=== PATIENT | female | born 1955 | race Caucasian/White ===

== ENCOUNTER 2020-08-05 05:01 | Inpatient (IN) ==
[2020-07-30 20:01] LABS: Appearance,Urine CLEAR (Clear); Bilirubin,Urine Negative (Negative); Color,Urine YELLOW; Culture Indicated,Urine No; Glucose,Urine (UA) Negative (Negative); Ketones,Urine Negative (Negative); Leukocyte Esterase,Urine 25 /ug (Negative); Mucus,Urine FEW /hpf; Nitrate,Urine Negative (Negative); Protein,Urine Negative (Negative); Specific Gravity,Urine 1.017 (1.000-1.035); Urine Blood Negative (Negative); Urine RBC 0 /hpf (0-1); Urine Squamous Epithelial Cell < 1 /hpf (0-4); Urine WBC 2 /hpf (0-4); Urobilinogen,Urine Negative
[2020-07-30 20:15] LABS: ALT/SGPT 18 U/L (<40); AST/SGOT 21 U/L (<32); Albumin 4.4 gm/dL (3.2-5.2); Albumin/Globulin Ratio 1.8 (1.0-2.3); Alkaline Phosphatase 97 U/L (39-117); Bilirubin,Total 0.3 mg/dL (0.1-1.0); Blood Urea Nitrogen 25 mg/dL (8-23); Calcium 9.6 mg/dL (8.6-10.4); Carbon Dioxide 24 mmol/L (22-30); Chloride 105 mmol/L (96-108); Globulin 2.4 gm/dL (2.2-3.7); Glomerular Filtration Rate 39; Glucose 88 mg/dL (70-105)
[2020-07-30 22:43] LABS: Estimated Average Glucose(eAG) 103 mg/dL; Hemoglobin A1C 5.2 % Hgb (4.0-6.0)
[~2020-08-05 05:01] MED LIST: IPRATROPIUM/ALBUTEROL 3 ML AMPUL.NEB NEB PRN; SCOPOLAMINE 1 PATCH PATCH TOPICAL PRN
[2020-08-05] MEDS ORDERED: oxyCODONE 10 MG TAB.ER.12H PO SCH (06:00)
[2020-08-05] MEDS ORDERED: ceFAZolin 2 GM in DEXTROSE 5% IN WATER 50 ML IV SCH (06:00)
[2020-08-05] MEDS ORDERED: GABAPENTIN 300 MG CAPSULE PO SCH (06:00)
[2020-08-05] MEDS ORDERED: 0.9 % SODIUM CHLORIDE 9 ML, KETOROLAC 30 MG, ROPIVACAINE HCL/PF 49.5 ML, EPINEPHrine 0.... IJ SCH (06:00)
[2020-08-05 06:13] LABS: Basophils # (Auto) 0.02 K/mcL (0.00-0.20); Basophils % (Auto) 0.3 % (0.0-2.0); Eosinophils # (Auto) 0.37 K/mcL (0.00-0.70); Eosinophils % (Auto) 5.9 % (0.0-7.0); Hematocrit 33.6 % (36.0-48.0); Hemoglobin 11.2 g/dL (12.0-15.0); Lymphocytes % (Auto) 20.6 % (15.0-49.0); Mean Cell Volume 91.1 fL (80.0-100.0); Mean Corpuscular HGB Conc 33.3 g/dL (31.0-36.0); Mean Platelet Volume 11.5 fL (7.4-10.4); Monocytes # (Auto) 0.47 K/mcL (0.10-0.90); Monocytes % (Auto) 7.4 % (1.0-12.0); Neutrophils % (Auto) 65.8 % (38.0-78.0); Platelet Count 125 K/mcL (140-440); RBC 3.69 M/mcL (4.00-5.20); Red Cell Distribution Width 12.8 % (11.5-14.5); WBC 6.3 K/mcL (4.5-11.0)
[2020-08-05] MEDS ORDERED: PHENYLEPHRINE 10 MG/ML VIAL ONE (07:41)
[2020-08-05] MEDS ORDERED: ONDANSETRON 4 MG/2 ML VIAL ONE (07:41)
[2020-08-05] MEDS ORDERED: TRANEXAMIC ACID 1,000 MG/10 ML VIAL IV ONE ×2 (07:41→09:12)
[2020-08-05] MEDS ORDERED: KETAMINE 100 MG/ML ML ONE (07:41)
[2020-08-05] MEDS ORDERED: PROPOFOL 200 MG/20 ML VIAL IV ONE (07:41)
[2020-08-05] MEDS ORDERED: MIDAZOLAM 2 MG/2 ML VIAL ONE (07:41)
[2020-08-05] MEDS ORDERED: ROPIVACAINE HCL/PF 20 ML VIAL IJ ONE (07:41)
[2020-08-05] MEDS ORDERED: GLYCOPYRROLATE 0.2 MG/ML VIAL IV ONE (07:41)
[2020-08-05] MEDS ORDERED: LIDOCAINE HCL/PF 100 MG/5 ML SYRINGE IV ONE (07:41)
[2020-08-05] MEDS ORDERED: DEXAMETHASONE 10 MG/ML VIAL ONE (07:41)
[2020-08-05] MEDS ORDERED: FLUMAZENIL 0.1 MG/ML ML IV PRN (08:32)
[2020-08-05] MEDS ORDERED: MEPERIDINE 25 MG/ML SYRINGE IV PRN (08:32)
[2020-08-05] MEDS ORDERED: HYDROmorphone 0.5 MG/0.5 ML SYRINGE IV PRN (08:32)
[2020-08-05] MEDS ORDERED: ATROPINE SULFATE 0.4 MG/ML VIAL IV PRN (08:32)
[2020-08-05] MEDS ORDERED: diphenhydrAMINE 50 MG/ML VIAL IV PRN (08:32)
[2020-08-05] MEDS ORDERED: IPRATROPIUM/ALBUTEROL 3 ML AMPUL.NEB NEB PRN (08:32)
[2020-08-05] MEDS ORDERED: NALOXONE HCL 0.4 MG/ML VIAL IV PRN (08:32)
[2020-08-05] MEDS ORDERED: ePHEDrine 50 MG/ML AMPUL IV PRN (08:32)
[2020-08-05] MEDS ORDERED: fentaNYL 100 MCG/2 ML VIAL IV PRN (08:32)
[2020-08-05] MEDS ORDERED: METHOCARBAMOL 1,000 MG/10 ML VIAL IV PRN (08:32)
[2020-08-05] MEDS ORDERED: ONDANSETRON 4 MG/2 ML VIAL IV PRN ×2 (08:32→09:12)
[2020-08-05] MEDS ORDERED: ACETAMINOPHEN 1,000 MG/100 ML BOTTLE IV ONE (08:32)
[2020-08-05] MEDS ORDERED: METOPROLOL TARTRATE 5 MG/5 ML VIAL IV PRN (08:32)
[2020-08-05] MEDS ORDERED: PROMETHAZINE 25 MG/ML VIAL IV PRN (08:32)
[2020-08-05] MEDS ORDERED: LORazepam 2 MG/ML VIAL IV ONE (08:34)
[2020-08-05] MEDS ORDERED: LACTATED RINGERS 1,000 ML IV SCH (08:45)
[2020-08-05] MEDS ORDERED: BENZOCAINE/MENTHOL 1 LOZENGE PO PRN (09:12)
[2020-08-05] MEDS ORDERED: BISACODYL 10 MG SUPP.RECT PR PRN (09:12)
[2020-08-05] MEDS ORDERED: HYDROmorphone 1 MG/ML SYRINGE IV PRN (09:12)
[2020-08-05] MEDS ORDERED: FLEETS ADULT ENEMA PR PRN (09:12)
[2020-08-05] MEDS ORDERED: DEXTROSE 31 GM ORAL.SUSP PO PRN (09:12)
[2020-08-05] MEDS ORDERED: MAGNESIUM HYDROXIDE 30 ML ORAL.SUSP PO PRN (09:12)
[2020-08-05] MEDS ORDERED: POLYETHYLENE GLYCOL 3350 17 GM PACKET PO PRN (09:12)
[2020-08-05] MEDS ORDERED: DEXTROSE 50% 50 ML VIAL IV PRN (09:12)
--- NOTE | 2020-08-05 09:12 | Brief Operative Note ---
Brief Operative Note Date of procedure: 08/05/20 Pre-op diagnosis: Right knee DJD Post-op diagnosis: same Procedure: Right robotic assisted total knee arthroplasty Grafts/Implants: Yes ([place] Triathlon CR 4 femur, 3 tibia, 9mm insert, 33 patella) Anesthesia: GLMA Findings: arthritis Complications: none Surgeon: Edward Meade Sulfide Head Operator: Homer Naidu Estimated blood loss (cc): 50 Specimens Removed/Pathology: none sent Condition: stable Disposition: PACU
[2020-08-05] MEDS ORDERED: ZOLPIDEM 5 MG TABLET PO PRN (09:18)
[2020-08-05] MEDS ORDERED: ALBUTEROL SULFATE 200 PUFF INHALER INH PRN (09:18)
[2020-08-05] MEDS ORDERED: FLUTICASONE PROPIONATE SPRAY.NAS NS PRN (09:18)
[2020-08-05] MEDS ORDERED: ACETAMINOPHEN 500 MG TABLET PO PRN (09:18)
[2020-08-05] MEDS ORDERED: LORazepam 1 MG TABLET PO PRN (09:25)
--- NOTE | 2020-08-05 09:48 | Operative Note ---
DATE OF OPERATION: 08/05/2020 PREOPERATIVE DIAGNOSIS: Right knee osteoarthritis. POSTOPERATIVE DIAGNOSIS: Right knee osteoarthritis. PROCEDURE PERFORMED: Right robotic-assisted total knee arthroplasty placing a [place] Triathlon size 4 cruciate retaining femoral component, size 3 tibial baseplate, and a 9 mm X3 tibial insert with a 33 mm patellar button. SURGEON: Edward Meade M.D. RADIOLOGY TECHNOLOGIST: Ludwin Naidu PA-C. The PA's assistance was required for the safe and efficient completion of the entire case. This providers expertise and technical skill were required throughout the case. The PA assisted with preoperative coordination, intraoperative retraction, wound closure, dressing and splint application, as well as postoperative documentation and care coordination. ANESTHESIA: Spinal plus general. DRAINS: None. SPECIMENS: Bone cuts which were discarded. ESTIMATED BLOOD LOSS: 50 mL. SPECIMENS: None. POSTOPERATIVE CONDITION: Stable. INDICATIONS FOR SURGERY: This is a 64-year-old female who has had severe knee pain, progressively worsening with time. Radiographs showed advancing osteoarthritis. I believe she also had an MRI which confirmed advanced osteoarthritis. FINDINGS AT SURGERY: She had full-thickness cartilage loss off of the trochlea and lateral femoral condyle. Post implantation showed good overall limb alignment, patellar tracking, and joint stability. PROCEDURE IN DETAIL: The patient had been seen preoperatively. Informed consent had been obtained after discussion of risks and benefits of surgery. Risks including, but not limited to, bleeding, possibly requiring transfusion; infection, possibly requiring implant removal and prolonged IV antibiotics; injury to nerves, blood vessels, and other surrounding structures; anesthetic risks; incomplete or no resolution of symptoms; swelling; stiffness; pain; instability; DVT and pulmonary embolus risks; and the possibility of needing further revision joint surgery. Patient understood and wished to proceed. Correct operative site was marked in preoperative holding, and patient was taken to the operating room and general anesthesia was induced. The right lower extremity was then prepped and draped in normal sterile fashion, and a timeout was performed verifying patient name, operative site, and plan. Ioban was placed over all skin surfaces and an Esmarch was used to exsanguinate the extremity, and tourniquet was inflated to 300 mmHg. A midline incision was made with a scalpel through skin and subcutaneous tissue, then IrriSept was irrigated and a medial parapatellar arthrotomy was made, and then a subperiosteal exposure was done of the anterior medial tibia. Anterior horns of the menisci were removed, as well as retropatellar fat pad. ACL was transected. We then did a resection of the patella freehand, premeasuring thickness and then placing a cut protector after. We then placed our femoral and tibial checkpoints, and then a scalpel was used to make two stab incisions over the femur and two over the tibia and bicortical pins placed. The arrays were connected. The green probe was used to identify medial and lateral malleoli and double-checks were made with the green probe of the femoral and tibial check points. Blue probe was then used to do our mapping. A rongeur was used to remove osteophytes. We then used the spoons to check our flexion-extension gaps and made adjustments to get as close to 17 mm gaps on all four numbers as possible. We ended up being tight in flexion laterally, so I did do an IT band pie-crusting release. Once this was completed, we then used the robotic arm to make our bone cuts. The tibia was prepared with the boss reamer and keel punch and externally rotated as bone coverage would allow. A keeled tibial trial was placed, and the femur was elevated. Curved osteotome and curet were used to remove posterior osteophytes. Femoral trial was then impacted and pinned into place. This was placed flush along the lateral cortex of the femur and then peg holes were drilled. A 9 insert trial was placed and then the knee was taken into extension. We then prepared the patella medializing maximally and sized this to a 33 patella. We then checked the patellar tracking and it was stable. We then removed trial implants. Definitive implants were opened while the joint was irrigated with IrriSept. After waiting a minute, we pulse lavaged with saline. Antibiotic cement was mixed and then the cancellous bone surfaces were dried with the CO2 gun. We then cemented the tibia, followed by the femur. Excess cement was removed, and the trial insert was placed, and the knee was taken into extension. The patella was then cemented. After excess cement was removed, we filled the joint with IrriSept. The tibial and femoral check points were removed. The extension was checked and then we removed our arrays and our pins. We injected pain cocktail in the pericapsular and subcutaneous tissues. Once cement had fully hardened, we flexed the knee up. We removed the insert trial, injected pain cocktail in the posteromedial capsule. We then opened a 9 mm CR insert, and this was carefully impacted and verified to be fully seated. The knee was then placed in extension and filled with IrriSept. After a minute it was copiously pulse lavaged with saline. We then flexed the knee to 45 degrees of flexion. A #2 FiberWire [id number] was used around the superior quadrant of the patella, #1 Vicryl [id number] around the inferior quadrant. Running #1 Vicryl was used for patellar tendon and quad tendon. Final IrriSept irrigation was done, after a minute final pulse lavage, and then 2-0 Monocryl was used for subcutaneous and Charlotte Zip closure for skin. Xeroform and sterile dressing were applied. Tourniquet was released. The patient was awakened, extubated, and transferred to recovery in stable condition. [id number] Job ID: [id number] Doc ID: [id number] Edward Meade MD
[2020-08-05] MEDS ORDERED: guaiFENesin/DEXTROMETHORPHAN ORAL SOL PO PRN (10:12)
[2020-08-05] MEDS ORDERED: PROMETHAZINE 25 MG TABLET PO PRN (10:15)
--- NOTE | 2020-08-05 10:33 | XRay Report ---
CLINICAL INFORMATION: Post-op total knee. COMPARISON: None. FINDINGS: Total knee prostheses is anatomically aligned. No osseous abnormality. Periarticular soft tissue swelling and gas seen as expected IMPRESSION: Negative Interpreted and Authenticated by: Faizan Davila 08/05/20
[2020-08-05] MEDS: 0.9 % SODIUM CHLORIDE 1,000 ML IV SCH ×2 (10:44→21:16)
[2020-08-05] MEDS: INSULIN LISPRO 1 UNIT/0.01 ML UNIT SQ SCH ×3 (11:57→20:12)
[2020-08-05] MEDS ORDERED: SELENIUM 200 MCG PO SCH (12:00)
[2020-08-05] MEDS ORDERED: [UNRECOGNIZED DRUG - OTHER] PO SCH (12:00)
[2020-08-05] MEDS: oxyCODONE/APAP 5/325MG TABLET PO PRN ×3 (12:00→20:02)
[2020-08-05] MEDS ORDERED: LACTOBACILLUS 1 CAPSULE PO SCH (12:00)
[2020-08-05] MEDS: FLUTICASONE HFA 44MCG INHALER INH SCH ×3 (12:55→20:04)
[2020-08-05] MEDS: 0.9 % SODIUM CHLORIDE 10 ML SYRINGE IV SCH ×2 (13:41→23:21)
[2020-08-05] MEDS: hydrOXYzine 25 MG TABLET PO SCH ×2 (15:18→20:03)
[2020-08-05] MEDS: ceFAZolin 1 GM VIAL IV SCH ×2 (15:19→23:21)
[2020-08-05] MEDS: GABAPENTIN 300 MG CAPSULE PO SCH ×2 (15:19→20:03)
[2020-08-05] MEDS: IPRATROPIUM/ALBUTEROL 3 ML AMPUL.NEB NEB PRN ×2 (17:18→23:12)
[2020-08-05] MEDS ORDERED: ASCORBIC ACID 500 MG TABLET PO SCH (18:00)
[2020-08-05] MEDS ORDERED: MAGNESIUM OXIDE 400 MG TABLET PO SCH (18:00)
[2020-08-05] MEDS ORDERED: PYRIDOXINE 100 MG TABLET PO SCH ×2 (18:00)
[2020-08-05] MEDS ORDERED: ATORVASTATIN 10 MG TABLET PO SCH (21:00)
[2020-08-05] MEDS ORDERED: FERROUS GLUCONATE 324 MG TABLET PO SCH (21:00)
[2020-08-05] MEDS ORDERED: DOCUSATE SODIUM 100 MG CAPSULE PO SCH (21:00)
[2020-08-05] MEDS ORDERED: [UNRECOGNIZED DRUG - OTHER] OU SCH (21:00)
[2020-08-05] MEDS ORDERED: SENNOSIDES 1 TABLET PO SCH ×2 (21:00)
[2020-08-05] MEDS ORDERED: SIMETHICONE 80 MG TAB.CHEW CHEWED SCH (21:00)
[2020-08-05] MEDS ORDERED: LISINOPRIL 10 MG TABLET PO SCH (21:00)
[2020-08-05] MEDS ORDERED: MONTELUKAST 10 MG TABLET PO SCH (21:00)
[2020-08-05] MEDS ORDERED: MELATONIN 3 MG TABLET PO SCH (21:00)
[2020-08-05] MEDS ORDERED: ASPIRIN 81 MG TAB.CHEW PO SCH (21:00)
[2020-08-05] MEDS ORDERED: HYPROMELLOSE OU SCH (21:00)
[2020-08-06] MEDS ORDERED: LORazepam 2 MG/ML VIAL IV ONE ×2 (00:01→07:45)
[2020-08-06] MEDS ORDERED: LORazepam 2 MG/ML VIAL ONE ×2 (00:08→01:23)
[2020-08-06] MEDS ORDERED: GADOBENATE DIMEGLUMINE 20 ML/VIAL IV ONE (00:37)
[2020-08-06] MEDS ORDERED: FLEETS ADULT ENEMA PR PRN (00:38)
[2020-08-06] MEDS ORDERED: ALBUTEROL SULFATE 200 PUFF INHALER INH PRN (00:38)
[2020-08-06] MEDS ORDERED: HYDROmorphone 1 MG/ML SYRINGE IV PRN (00:38)
[2020-08-06] MEDS ORDERED: guaiFENesin/DEXTROMETHORPHAN ORAL SOL PO PRN (00:38)
[2020-08-06] MEDS ORDERED: DEXTROSE 31 GM ORAL.SUSP PO PRN ×2 (00:38→00:40)
[2020-08-06] MEDS ORDERED: ONDANSETRON 4 MG/2 ML VIAL IV PRN (00:38)
[2020-08-06] MEDS ORDERED: MAGNESIUM HYDROXIDE 30 ML ORAL.SUSP PO PRN (00:38)
[2020-08-06] MEDS ORDERED: DEXTROSE 50% 50 ML VIAL IV PRN ×2 (00:38→00:40)
[2020-08-06] MEDS ORDERED: BISACODYL 10 MG SUPP.RECT PR PRN (00:38)
[2020-08-06] MEDS ORDERED: PROMETHAZINE 25 MG TABLET PO PRN (00:38)
[2020-08-06] MEDS ORDERED: POLYETHYLENE GLYCOL 3350 17 GM PACKET PO PRN (00:38)
[2020-08-06] MEDS ORDERED: BENZOCAINE/MENTHOL 1 LOZENGE PO PRN (00:38)
[2020-08-06] MEDS ORDERED: ACETAMINOPHEN 500 MG TABLET PO PRN (00:38)
[2020-08-06] MEDS ORDERED: IPRATROPIUM/ALBUTEROL 3 ML AMPUL.NEB NEB PRN (00:38)
[2020-08-06] MEDS ORDERED: FLUTICASONE PROPIONATE SPRAY.NAS NS PRN (00:38)
[2020-08-06] MEDS ORDERED: LACTULOSE 20 GM/30 ML ORAL.SOL PO PRN (00:40)
[2020-08-06] MEDS ORDERED: levETIRAcetam 500 MG in 0.9 % SODIUM CHLORIDE 100 ML IV ONE (00:41)
[2020-08-06] MEDS ORDERED: LORazepam 2 MG/ML VIAL IV PRN (00:41)
[2020-08-06] MEDS: 0.9 % SODIUM CHLORIDE 1,000 ML IV SCH ×3 (01:55→18:59)
[2020-08-06] MEDS: 0.9 % SODIUM CHLORIDE 10 ML SYRINGE IV SCH ×5 (05:05→22:10)
[2020-08-06] MEDS ORDERED: HYDROmorphone 0.5 MG/0.5 ML SYRINGE ONE (05:40)
[2020-08-06 06:33] LABS: Basophils # (Auto) 0.01 K/mcL (0.00-0.20); Basophils % (Auto) 0.2 % (0.0-2.0); Eosinophils # (Auto) 0.08 K/mcL (0.00-0.70); Eosinophils % (Auto) 1.6 % (0.0-7.0); Hematocrit 24.5 % (36.0-48.0); Hemoglobin 8.1 g/dL (12.0-15.0); Lymphocytes # (Auto) 0.91 K/mcL (1.50-4.80); Lymphocytes % (Auto) 18.8 % (15.0-49.0); Mean Cell Volume 92.1 fL (80.0-100.0); Mean Corpuscular HGB Conc 33.1 g/dL (31.0-36.0); Mean Platelet Volume 11.3 fL (7.4-10.4); Monocytes # (Auto) 0.47 K/mcL (0.10-0.90); Monocytes % (Auto) 9.7 % (1.0-12.0); Neutrophils % (Auto) 69.7 % (38.0-78.0); Platelet Count 76 K/mcL (140-440); RBC 2.66 M/mcL (4.00-5.20); Red Cell Distribution Width 12.7 % (11.5-14.5); WBC 4.9 K/mcL (4.5-11.0)
[2020-08-06 07:02] LABS: ALT/SGPT 10 U/L (<40); AST/SGOT 18 U/L (<32); Albumin 3.4 gm/dL (3.2-5.2); Albumin/Globulin Ratio 1.8 (1.0-2.3); Alkaline Phosphatase 74 U/L (39-117); Bilirubin,Total 0.2 mg/dL (0.1-1.0); Blood Urea Nitrogen 21 mg/dL (8-23); Calcium 8.5 mg/dL (8.6-10.4); Carbon Dioxide 23 mmol/L (22-30); Chloride 103 mmol/L (96-108); Globulin 1.9 gm/dL (2.2-3.7); Glomerular Filtration Rate 33; Glucose 98 mg/dL (70-105); Phosphorous 5.2 mg/dL (2.5-4.5)
[2020-08-06] MEDS ORDERED: INSULIN LISPRO 1 UNIT/0.01 ML UNIT SQ SCH (07:30)
[2020-08-06] MEDS ORDERED: LEVOTHYROXINE 75 MCG TABLET PO SCH (07:30)
[2020-08-06] MEDS ORDERED: OMEPRAZOLE 20 MG CAPSULE PO SCH (07:30)
--- NOTE | 2020-08-06 07:47 | General Surgery Progress Note ---
Surgery - Auxiliary Note Subjective Patient Information: Note initiated : 08/06/20 at 7:46 am Service Date, if different from initiated Date: [] Patient: Yane Carranza 64 y/o F admitted on 08/06/20 for Right Total Knee Arthroplasty Jhony. Chief Complaint: Pt one day s/p R TKA. Pt suffered a seizure post-op. Hospitalist was consulted. bandages c/d/i nvi-distal 1 day s/p R TKA- stable orthopaedicaly. Mobilize with PT cont with medical management per hospitalist.
[2020-08-06] MEDS: INSULIN LISPRO 1 UNIT/0.01 ML UNIT SQ SCH ×4 (07:54→22:08)
[2020-08-06] MEDS ORDERED: FLUTICASONE HFA 44MCG INHALER INH SCH (09:00)
[2020-08-06] MEDS ORDERED: SERTRALINE 100 MG TABLET PO SCH (09:00)
[2020-08-06] MEDS ORDERED: buPROPion 150 MG TAB.XL.24H PO SCH (09:00)
[2020-08-06] MEDS ORDERED: MEMANTINE 10 MG TABLET PO SCH (09:00)
[2020-08-06] MEDS ORDERED: SPIRONOLACTONE 25 MG TABLET PO SCH (09:00)
[2020-08-06] MEDS ORDERED: DOCUSATE SODIUM 100 MG CAPSULE PO SCH (09:00)
[2020-08-06 09:03] LABS: Hemoglobin A1C 5.3 % Hgb (4.0-6.0)
[2020-08-06] MEDS: buPROPion 150 MG TAB.XL.24H PO SCH (09:05)
[2020-08-06] MEDS: HEPARIN 5,000 UNIT/ML VIAL SQ SCH ×2 (09:05→22:04)
[2020-08-06] MEDS: SPIRONOLACTONE 25 MG TABLET PO SCH (09:05)
[2020-08-06] MEDS: ASPIRIN 81 MG TAB.CHEW PO SCH ×2 (09:05→22:06)
[2020-08-06] MEDS: DOCUSATE SODIUM 100 MG CAPSULE PO SCH ×2 (09:05→22:06)
[2020-08-06] MEDS: LEVOTHYROXINE 75 MCG TABLET PO SCH (09:06)
[2020-08-06] MEDS: levETIRAcetam 500 MG TABLET PO SCH ×2 (09:06→19:11)
[2020-08-06] MEDS: SERTRALINE 100 MG TABLET PO SCH (09:06)
[2020-08-06] MEDS: GABAPENTIN 300 MG CAPSULE PO SCH ×3 (09:06→22:09)
[2020-08-06] MEDS: MEMANTINE 10 MG TABLET PO SCH (09:06)
[2020-08-06] MEDS: OMEPRAZOLE 20 MG CAPSULE PO SCH (09:07)
[2020-08-06] MEDS: FLUTICASONE HFA 44MCG INHALER INH SCH ×2 (09:09→22:07)
[2020-08-06] MEDS: [UNRECOGNIZED DRUG - OTHER] OU SCH ×2 (09:09→22:09)
[2020-08-06] MEDS: HYPROMELLOSE OU SCH ×2 (09:09→22:09)
--- NOTE | 2020-08-06 09:37 | Magnetic Resonance Report ---
CLINICAL INFORMATION: Seizure like activity following surgery. Remote history of head trauma COMPARISON: Head CT 09/15/2012 TECHNIQUE: Sagittal T1 FLAIR, axial diffusion ADC, T1 FLAIR, T2 FLAIR propeller, T2 propeller gradient, T1 post Magnevist and coronal T1 FLAIR post Magnevist images were acquired. FINDINGS: The ventricles, sulci, fissures and cisterns are decreased in size for age. There are no extra-axial fluid collection or mass appreciated. Empty sella is noted. The signal within the chapin and white matter of the cerebrum, brainstem and cerebellum is unremarkable. Orbits show slight prominence of the optic sheath and there is mild flattening of the posterior ocular globes. Signal void in intracerebral arteries and extra-axial cranial nerves are normal. IMPRESSION: Findings compatible with pseudotumor cerebri. This is occasionally associated with seizures. Consider: Fluoroscopic guided lumbar puncture for CSF pressure measurements and concomitant CSF removal which may improve symptoms Interpreted and Authenticated by: Faizan Davila 08/06/20
[2020-08-06] MEDS ORDERED: FLU VACC QS2020-21(6MOS UP)/PF 60 MCG/0.5 ML SYRINGE IM ONE (10:00)
[2020-08-06] MEDS ORDERED: PNEUMOCOCCAL 23-VAL P-SAC VAC 0.5 ML SYRINGE IM ONE (10:00)
[2020-08-06] MEDS: ONDANSETRON 4 MG/2 ML VIAL IV PRN ×2 (10:25→15:47)
--- NOTE | 2020-08-06 11:22 | Internal Medicine Consult Note ---
HPI Data of Consult Consult date: 08/06/20 Requesting physician: Edward Meade Primary Care Provider: Shelby Benson Consult Narrative Chief complaint: seizure Reason for consult: Seizure History of present illness: Patient is a 64-year-old female with a history of seizure disorder, SLE, GI bleeding, conversion disorder type 2 diabetes, and high blood pressure who underwent right knee replacement yesterday afternoon by Dr. Meade. Last night around midnight she had one episode of seizure, presenting with both arms myoclonic shaking and holding a pillow to her chest. I was called for this event. I saw and examined patient immediately in patient room. As per nurse, during the event, pt did not lose consciousness, no urinary or bowel incontinence. But patient did complains of mild headache. Otherwise patient denied dizziness, nausea, vomiting, abdominal pain, or dysuria. No change in vision. cc:: CC: Edward Meade Review of Systems Review of systems: Positive for seizure and mild headache. All other systems were reviewed and are negative. PFSH PFSH All Active Problems Arthralgia (Acute) Myalgia (Acute) Back pain (Acute) Encounter for long-term (current) use of high-risk medication (Acute) SLE (systemic lupus erythematosus) (Acute) Chronic neck and back pain (Chronic) Leukopenia (Chronic) Thrombocytopenia (Chronic) Club foot (Chronic) Spinal stenosis (Chronic) Partial tear of rotator cuff (Chronic) History of pneumonia (Chronic) History of colon polyps (Chronic) History of GI bleed (Chronic) Cervical strain (Chronic) Allergic rhinitis (Chronic) Overactive bladder (Chronic) Edema (Chronic) Glucose intolerance (Chronic) Pes planus (Chronic) Hallux valgus (Chronic) Instability of joint (Chronic) Metatarsalgia, unspecified foot (Chronic) Corns and callosities (Chronic) Callus of foot (Chronic) Family history of suicide (Chronic) Generalized anxiety disorder (Chronic) Conversion disorder (Chronic) Insomnia (Chronic) Major depressive disorder (Chronic) Cystocele (Chronic) Hypotonic bladder (Chronic) Urinary incontinence, mixed (Chronic) History of recurrent UTIs (Chronic) Osteopenia (Chronic) nursing home (current) use of opiate analgesic (Chronic) nursing home (current) use of non-steroidal anti-inflammatories (nsaid) (Chronic) Osteoarthritis (Chronic) Bilateral leg edema (Chronic) GERD (gastroesophageal reflux disease) (Chronic) Obesity (Chronic) DJD (degenerative joint disease) of cervical spine (Chronic) Hypothyroidism (Chronic) Hyperlipidemia (Chronic) Type 2 diabetes mellitus with diabetic polyneuropathy (Chronic) Muscle weakness (Chronic) Antinuclear factor positive (Chronic) Lupus erythematosus (Chronic) Essential hypertension (Chronic) Extrinsic asthma, unspecified (Chronic) Left maxillary sinusitis (Chronic) Cough (Chronic) Intractable seizure disorder (Chronic) Medical History Allergic rhinitis (Chronic) Antinuclear factor positive (Chronic) Arthralgia (Acute) Back pain (Acute) Bilateral leg edema (Chronic) Callus of foot (Chronic) Cervical strain (Chronic) Chronic neck and back pain (Chronic) Club foot (Chronic) Conversion disorder (Chronic) Corns and callosities (Chronic) Cough (Chronic) Cystocele (Chronic) DJD (degenerative joint disease) of cervical spine (Chronic) Edema (Chronic) Encounter for long-term (current) use of high-risk medication (Acute) Essential hypertension (Chronic) Extrinsic asthma, unspecified (Chronic) Family history of suicide (Chronic) Generalized anxiety disorder (Chronic) GERD (gastroesophageal reflux disease) (Chronic) Glucose intolerance (Chronic) Hallux valgus (Chronic) History of colon polyps (Chronic) History of GI bleed (Chronic) History of pneumonia (Chronic) History of recurrent UTIs (Chronic) Hyperlipidemia (Chronic) Hypothyroidism (Chronic) Hypotonic bladder (Chronic) Insomnia (Chronic) Instability of joint (Chronic) Intractable seizure disorder (Chronic) Left maxillary sinusitis (Chronic) Leukopenia (Chronic) 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 (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) use of non-steroidal anti-inflammatories (nsaid) (Chronic) 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 (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) use of opiate analgesic (Chronic) Lupus erythematosus (Chronic) Major depressive disorder (Chronic) Metatarsalgia, unspecified foot (Chronic) Muscle weakness (Chronic) Myalgia (Acute) Obesity (Chronic) Osteoarthritis (Chronic) Osteopenia (Chronic) Overactive bladder (Chronic) Partial tear of rotator cuff (Chronic) Pes planus (Chronic) SLE (systemic lupus erythematosus) (Acute) Spinal stenosis (Chronic) Thrombocytopenia (Chronic) Type 2 diabetes mellitus with diabetic polyneuropathy (Chronic) Urinary incontinence, mixed (Chronic) Surgical History H/O tubal ligation (Chronic) History of colonoscopy (Chronic ~2007) History of tonsillectomy and adenoidectomy (Chronic ~1962) Previous section (Chronic) -transverse incision Social History (Updated 03/20/18 @ 18:08 by Ben Chirinos MD) marital status: occupational status: disabled physical activity: none smoking status: Never smoker alcohol intake frequency: does not drink MEDS/ALLERGIES Home Medications and Allergies Home Medications Medication Instructions Recorded Confirmed Type atorvastatin 10 mg tablet 10 mg PO HS 03/01/18 08/05/20 History ferrous gluconate 324 mg (37.5 mg 324 mg PO HS tab 03/01/18 08/05/20 History iron) tablet lorazepam 1 mg tablet 1 mg PO DAILYP PRN 03/01/18 08/05/20 History promethazine 12.5 mg tablet 12.5 mg PO Q8HP PRN tab 03/01/18 08/05/20 History L. acidophilus-L. rhamnosus 1 cap PO DAILY@1200 07/30/20 08/05/20 History [Digestive Health Probiotic] acetaminophen 500 mg PO HSP PRN 07/30/20 08/05/20 History albuterol sulfate [Ventolin HFA] 1 - 2 puff INHALATION Q6HP PRN 07/30/20 08/05/20 History artificial tears(hypromellose) 1 drp OPHTHALMIC (EYE) BID 07/30/20 08/05/20 History ascorbic acid (vitamin C) [Vitamin 500 mg PO DAILY@1800 07/30/20 08/05/20 History C] bupropion HCl [Wellbutrin XL] 150 mg PO QAM 07/30/20 08/05/20 History dextromethorphan-guaifenesin 5 ml PO HSP PRN 07/30/20 08/05/20 History [Robitussin Cough-Chest [place] DM] fluticasone propionate [Flonase 1 spray INTRANASAL DAILYP PRN 07/30/20 08/05/20 History Allergy Relief] fluticasone propionate [Flovent 1 puff INHALATION QID 07/30/20 08/05/20 History HFA] gabapentin 600 mg PO TID 07/30/20 08/05/20 History sayda root-pyridoxine HCl(B6) 1 cap PO DAILY@1800 07/30/20 08/05/20 History hydroxyzine HCl 25 mg PO TID 07/30/20 08/05/20 History ipratropium-albuterol 3 ml INHALATION QID PRN 07/30/20 08/05/20 History levothyroxine 75 mcg PO ACB 07/30/20 08/05/20 History lisinopril 10 mg PO HS 07/30/20 08/05/20 History magnesium 250 mg PO DAILY@1800 07/30/20 08/05/20 History melatonin 5 mg PO HS 07/30/20 08/05/20 History memantine 10 mg PO DAILY 07/30/20 08/05/20 History montelukast 10 mg PO HS 07/30/20 08/05/20 History omeprazole 20 mg PO ACB 07/30/20 08/05/20 History selenium 200 mcg PO DAILY@1200 07/30/20 08/05/20 History sennosides [senna] 8.6 mg PO HS 07/30/20 08/05/20 History sertraline 100 mg PO QDAY 07/30/20 08/05/20 History simethicone 125 mg PO HS 07/30/20 08/05/20 History spironolactone 25 mg PO QDAY 07/30/20 08/05/20 History zinc-vit C-pyridoxine (vit B6) 1 jak PO DAILY@1200 07/30/20 08/05/20 History zolpidem 5 mg PO HSP PRN 07/30/20 08/05/20 History Allergies Allergy/AdvReac Type Severity Reaction Status Date / Time Iodinated Contrast Media Allergy Severe Anaphylaxis Verified 08/05/20 10:16 [Iodinated Contrast Media - IV Dye] iodine Allergy Severe Anaphylaxis Verified 08/05/20 06:28 shellfish derived Allergy Severe Anaphylaxis Verified 08/05/20 10:16 Cevimeline [From Evoxac] Allergy Intermediate Unknown Verified 08/05/20 06:28 propoxyphene [From Darvon] Allergy Mild Other Verified 08/05/20 06:28 acetaminophen Allergy Unknown Unknown Verified 08/05/20 06:28 [From Darvocet-N] Amoxicillin [From Augmentin] Allergy Unknown Other Verified 08/05/20 06:28 clavulanic acid Allergy Unknown Unknown Verified 08/05/20 06:28 [From Augmentin] aspirin AdvReac Mild Other Verified 07/30/20 14:11 lactase [From Dairy Aid] AdvReac Mild Nausea Verified 08/06/20 09:06 NSAIDS (Non-Steroidal AdvReac Mild Other Verified 08/05/20 06:28 Anti-Inflamma oxycodone [From OxyContin] AdvReac Mild Other Verified 08/05/20 06:28 Sulfa (Sulfonamide AdvReac Mild Rash Verified 08/05/20 06:28 Antibiotics) EXAM Constitutional Vitals: Temp Pulse Resp BP Pulse Ox 97.1 F 77 19 94/61 88 L 08/06/20 07:01 08/06/20 09:03 08/06/20 10:02 08/06/20 09:03 08/06/20 09:03 Additional findings Additional findings: General - No acute distress Eyes - PERRLA, EOM intact ENT no rhinorrhea, no noticeable or palpable swelling, no redness or rash around throat or on face Neck supple, no JVD, no thyromegaly Respiratory: Lungs - diminshed BS, no use of accessary muscles. Cardiovascular - RRR no m/r/g, GI - Normal bowel sounds, no distended, soft. Extremeties - No edema, cyanosis or clubbing. Right knee is in dressing. Hemo/lymphatic/immune no lymphadenopathy Neurological Alert and oriented x 3, no focal neurological deficits. Psychiatry flat affect DATA Data Completed and Pending Labs: Labs from last 24 hours 08/06/20 08/06/20 08/06/20 05:35 05:34 01:09 WBC 4.9 RBC 2.66 L Hgb 8.1 L Hct 24.5 L MCV 92.1 MCH 30.5 MCHC 33.1 RDW 12.7 Plt Count 76 L MPV 11.3 H Neut % (Auto) 69.7 Lymph % (Auto) 18.8 Maury % (Auto) 9.7 Eos % (Auto) 1.6 Baso % (Auto) 0.2 Lymph # (Auto) 0.91 L Maury # (Auto) 0.47 Eos # (Auto) 0.08 Baso # (Auto) 0.01 Absolute Neutrophils 3.38 Sodium 136 Potassium 4.6 Chloride 103 Carbon Dioxide 23 Anion Gap 10.0 BUN 21 Creatinine 1.6 H GFR Calculation 33 Glucose 98 Hemoglobin A1c Estim Average Glucose Calcium 8.5 L Phosphorus 5.2 H Magnesium 2.2 Total Bilirubin 0.2 AST 18 ALT 10 Alkaline Phosphatase 74 Troponin T < 0.01 Total Protein 5.3 L Albumin 3.4 Globulin 1.9 L Albumin/Globulin Ratio 1.8 08/06/20 01:09 WBC RBC Hgb Hct MCV MCH MCHC RDW Plt Count MPV Neut % (Auto) Lymph % (Auto) Maury % (Auto) Eos % (Auto) Baso % (Auto) Lymph # (Auto) Maury # (Auto) Eos # (Auto) Baso # (Auto) Absolute Neutrophils Sodium Potassium Chloride Carbon Dioxide Anion Gap BUN Creatinine GFR Calculation Glucose Hemoglobin A1c 5.3 Estim Average Glucose 105 Calcium Phosphorus Magnesium Total Bilirubin AST ALT Alkaline Phosphatase Troponin T Total Protein Albumin Globulin Albumin/Globulin Ratio A/P Narrative A/P Narrative: 1. Seizure One episode of seizure activity last night 1 mg ativan and 500mg Keppra were given last ngiht Keppra 500mg po bid MRI Neurology consult 2. S/p right total knee arthroplasty by Dr. Meade on 08/05 Post op management including pain control and DVT prophylaxis by Ortho team 3. Hx of SLE Presumed stable 4. Hx of GI bleeding Presumed stable Omeprazole 5. Hx of conversion disorder Presumed stable 6. DM type 2 Diabetic diet Insulin sliding scale 7. HTN Continue home medication 8. ASHLEY or ASHLEY on CKD stage III Unknown chronicity Creatinine 1.1 03/20/2018 Avoid nephrotoxic meds Repeat renal function in morning IV fluid 9. DVT prophylaxis: Heparin 10. CODE STATUS: Machine Maintenance Spent With Patient Time: Total time spent is greater than 50% in coordination of care (as documented) at patient's floor/unit and/or counseling patient:
[2020-08-06] MEDS: LACTOBACILLUS 1 CAPSULE PO SCH (11:31)
--- NOTE | 2020-08-06 11:41 | Event Note ---
Event Note Event Note: Advance care plan Parties in attendance: Patient Pt's decisional Capacity: Yes POLST form completed: not I explained the process regarding CPR and intubation to the patient who fully understood and agreed with CRP and intubation.
[2020-08-06] MEDS ORDERED: 0.9 % SODIUM CHLORIDE 250 ML IV ONE (12:18)
[2020-08-06] MEDS ORDERED: MAGNESIUM OXIDE 400 MG TABLET PO SCH (18:00)
[2020-08-06] MEDS ORDERED: PYRIDOXINE 100 MG TABLET PO SCH (18:00)
[2020-08-06] MEDS: oxyCODONE/APAP 5/325MG TABLET PO PRN (19:34)
[2020-08-06] MEDS ORDERED: SIMETHICONE 80 MG TAB.CHEW CHEWED SCH (21:00)
[2020-08-06] MEDS ORDERED: MELATONIN 3 MG TABLET PO SCH (21:00)
[2020-08-06] MEDS ORDERED: MONTELUKAST 10 MG TABLET PO SCH (21:00)
[2020-08-06] MEDS ORDERED: FERROUS GLUCONATE 324 MG TABLET PO SCH (21:00)
[2020-08-06] MEDS ORDERED: SENNOSIDES 1 TABLET PO SCH (21:00)
[2020-08-06] MEDS ORDERED: ATORVASTATIN 10 MG TABLET PO SCH (21:00)
[2020-08-07] MEDS: oxyCODONE/APAP 5/325MG TABLET PO PRN ×6 (00:03→22:48)
[2020-08-07] MEDS: ONDANSETRON 4 MG/2 ML VIAL IV PRN (02:27)
[2020-08-07] MEDS: 0.9 % SODIUM CHLORIDE 10 ML SYRINGE IV SCH ×3 (05:24→20:58)
[2020-08-07] MEDS: 0.9 % SODIUM CHLORIDE 1,000 ML IV SCH (05:24)
[2020-08-07 06:56] LABS: Basophils # (Auto) 0.01 K/mcL (0.00-0.20); Basophils % (Auto) 0.2 % (0.0-2.0); Eosinophils % (Auto) 1.8 % (0.0-7.0); Hematocrit 25.2 % (36.0-48.0); Hemoglobin 8.3 g/dL (12.0-15.0); Lymphocytes # (Auto) 0.62 K/mcL (1.50-4.80); Lymphocytes % (Auto) 11.1 % (15.0-49.0); Mean Corpuscular HGB Conc 32.9 g/dL (31.0-36.0); Mean Platelet Volume 11.9 fL (7.4-10.4); Monocytes # (Auto) 0.49 K/mcL (0.10-0.90); Monocytes % (Auto) 8.8 % (1.0-12.0); Neutrophils % (Auto) 78.1 % (38.0-78.0); Platelet Count 80 K/mcL (140-440); RBC 2.74 M/mcL (4.00-5.20); Red Cell Distribution Width 12.6 % (11.5-14.5); WBC 5.6 K/mcL (4.5-11.0)
[2020-08-07] MEDS: OMEPRAZOLE 20 MG CAPSULE PO SCH (07:00)
[2020-08-07] MEDS: LEVOTHYROXINE 75 MCG TABLET PO SCH (07:00)
[2020-08-07] MEDS: INSULIN LISPRO 1 UNIT/0.01 ML UNIT SQ SCH ×5 (07:05→20:51)
[2020-08-07 07:50] LABS: ALT/SGPT 7 U/L (<40); AST/SGOT 17 U/L (<32); Albumin 3.3 gm/dL (3.2-5.2); Albumin/Globulin Ratio 1.4 (1.0-2.3); Alkaline Phosphatase 81 U/L (39-117); Bilirubin,Total 0.4 mg/dL (0.1-1.0); Blood Urea Nitrogen 18 mg/dL (8-23); Calcium 8.6 mg/dL (8.6-10.4); Carbon Dioxide 22 mmol/L (22-30); Chloride 103 mmol/L (96-108); Globulin 2.4 gm/dL (2.2-3.7); Glomerular Filtration Rate 52; Glucose 114 mg/dL (70-105)
[2020-08-07] MEDS: levETIRAcetam 500 MG TABLET PO SCH ×2 (08:52→20:52)
[2020-08-07] MEDS: DOCUSATE SODIUM 100 MG CAPSULE PO SCH ×2 (08:52→20:52)
[2020-08-07] MEDS: MEMANTINE 10 MG TABLET PO SCH (08:52)
[2020-08-07] MEDS: SPIRONOLACTONE 25 MG TABLET PO SCH (08:52)
[2020-08-07] MEDS: buPROPion 150 MG TAB.XL.24H PO SCH (08:52)
[2020-08-07] MEDS: SERTRALINE 100 MG TABLET PO SCH (08:52)
[2020-08-07] MEDS: HYPROMELLOSE OU SCH ×2 (08:54→20:56)
[2020-08-07] MEDS: [UNRECOGNIZED DRUG - OTHER] OU SCH ×2 (08:54→20:56)
[2020-08-07] MEDS: FLUTICASONE HFA 44MCG INHALER INH SCH ×2 (08:54→21:02)
[2020-08-07] MEDS: ASPIRIN 81 MG TAB.CHEW PO SCH ×2 (08:54→20:54)
[2020-08-07] MEDS: HEPARIN 5,000 UNIT/ML VIAL SQ SCH ×2 (08:54→20:57)
[2020-08-07] MEDS: GABAPENTIN 300 MG CAPSULE PO SCH ×3 (08:54→20:52)
[2020-08-07] MEDS ORDERED: FUROSEMIDE 20 MG/2 ML VIAL IV ONE (10:31)
[2020-08-07] MEDS: LACTOBACILLUS 1 CAPSULE PO SCH ×2 (11:08→11:20)
[2020-08-07] MEDS ORDERED: TRANEXAMIC ACID 1,000 MG/10 ML VIAL IV ONE (11:16)
[2020-08-07] MEDS ORDERED: LORazepam 2 MG/ML VIAL IV PRN (11:16)
[2020-08-07] MEDS ORDERED: ONDANSETRON 4 MG/2 ML VIAL IV PRN (11:16)
[2020-08-07] MEDS ORDERED: FLEETS ADULT ENEMA PR PRN (11:16)
[2020-08-07] MEDS ORDERED: LIDOCAINE HCL/PF 100 MG/5 ML SYRINGE IV ONE (11:16)
[2020-08-07] MEDS ORDERED: GADOBENATE DIMEGLUMINE 20 ML/VIAL IV ONE (11:16)
[2020-08-07] MEDS ORDERED: ONDANSETRON 4 MG/2 ML VIAL ONE (11:16)
[2020-08-07] MEDS ORDERED: GLYCOPYRROLATE 0.2 MG/ML VIAL IV ONE (11:16)
[2020-08-07] MEDS ORDERED: BISACODYL 10 MG SUPP.RECT PR PRN (11:16)
[2020-08-07] MEDS ORDERED: POLYETHYLENE GLYCOL 3350 17 GM PACKET PO PRN (11:16)
[2020-08-07] MEDS ORDERED: LACTULOSE 20 GM/30 ML ORAL.SOL PO PRN (11:16)
[2020-08-07] MEDS ORDERED: KETAMINE 100 MG/ML ML ONE (11:16)
[2020-08-07] MEDS ORDERED: DEXTROSE 31 GM ORAL.SUSP PO PRN ×2 (11:16)
[2020-08-07] MEDS ORDERED: DEXTROSE 50% 50 ML VIAL IV PRN (11:16)
[2020-08-07] MEDS ORDERED: MAGNESIUM HYDROXIDE 30 ML ORAL.SUSP PO PRN (11:16)
[2020-08-07] MEDS ORDERED: PROPOFOL 200 MG/20 ML VIAL IV ONE (11:16)
[2020-08-07] MEDS ORDERED: PHENYLEPHRINE 10 MG/ML VIAL ONE (11:16)
[2020-08-07] MEDS ORDERED: BENZOCAINE/MENTHOL 1 LOZENGE PO PRN (11:16)
[2020-08-07] MEDS ORDERED: morphine 2 MG/ML VIAL IV PRN (11:16)
[2020-08-07] MEDS ORDERED: MIDAZOLAM 2 MG/2 ML VIAL ONE (11:16)
[2020-08-07] MEDS ORDERED: DEXAMETHASONE 10 MG/ML VIAL ONE (11:16)
[2020-08-07] MEDS ORDERED: ALBUTEROL SULFATE 200 PUFF INHALER INH PRN (11:16)
[2020-08-07] MEDS ORDERED: ROPIVACAINE HCL/PF 20 ML VIAL IJ ONE (11:16)
[2020-08-07] MEDS: PROMETHAZINE 25 MG TABLET PO PRN ×2 (13:22→21:30)
--- NOTE | 2020-08-07 14:57 | Internal Med Progress Note ---
SUBJECTIVE Subjective Patient information: Note initiated : 08/07/20 at 2:52 pm Service Date, if different from initiated Date: [] Patient: Yane Carranza 64 y/o F admitted on 08/07/20 for Right Total Knee Arthroplasty Jhony. Chief Complaint: [] Patient is a 64-year-old female with a history of seizure disorder, SLE, GI bleeding, conversion disorder type 2 diabetes, and high blood pressure who u nderwent right knee replacement yesterday afternoon by Dr. Meade. Last night around midnight she had one episode of seizure, presenting with both arms myoclonic shaking and holding a pillow to her chest. I was called for this event. I saw and examined patient immediately in patient room. As per nurse, during the event, pt did not lose consciousness, no urinary or bowel incontinence. But patient did complains of mild headache. Otherwise patient denied dizziness, nausea, vomiting, abdominal pain, or dysuria. No change in vision. cc:: CC: Edward Meade 08/07 Pt no longer has episode of seizure. She was sleepy yesterday and today she is more alert and awake. MRI of brain showed pseudotumor cerebri. This is occasionally associated with seizures. Consider: Fluoroscopic guided lumbar puncture for CSF pressure measurements and concomitant CSF removal which may improve symptoms Discussed with the result and her seizure with neurology Lisa Lund who agreed with current keppra treatment. We can do LP in the hospital or can be done as an outpatient. Could not reach her son. Considering there is no more seizure and sleepy/lethargic at times, pt also complains of leg pain, not controlled today, I will decrease keppra to 250mg bid and start her on morphine 2mg iv Q4hrs prn. I feel her sleepiness could result from keppra. Spoke to orth Vanna Horn who cleared to discharge the pt. Asprin 81mg bid x 2wks for DVT prophylaxis and f/u with orth in 2 wks. Review of Systems Review of systems: Positive for seizure and mild headache. All other systems we re reviewed and are negative. Constitutional Vitals: Vital Signs Temp Pulse Resp BP Pulse Ox 98.6 F 88 20 108/61 95 08/07/20 12:37 08/07/20 12:37 08/07/20 12:37 08/07/20 12:37 08/07/20 12:37 Period Temp Pulse Resp BP Sys/Anderson Pulse Ox Last 24 Hr 97.6 F-99.3 F 71-100 14-30 96-143/55-93 85-98 Intake and Output 08/07/20 08/07/20 08/07/20 05:59 13:59 21:59 Intake Total 1984 515 Output Total 1100 350 Balance 885 165 Intake & Output: Intake & Output 08/07/20 08/07/20 08/07/20 05:59 13:59 21:59 Intake Total 1984 515 Output Total 1100 350 Balance 885 165 Intake: IV 985 275 Sodium Chloride 0.9% 1,000 ml @ 985 275 100 mls/hr IV .Q10H [facility] Rx#: [id number] Oral 1000 240 Output: Void Amount 1100 350 Other: Meal Breakfast Percent of Meal Consumed 25% Feeding Ability Assist with Tray Set Up Urine Appearance Clear Clear Urine Color Bright Yellow Pale Additional findings Additional findings: General - alert and awake, can answer questions, No acute distress Eyes - PERRLA, EOM intact ENT no rhinorrhea, no noticeable or palpable swelling, no redness or rash around throat or on face Neck supple, no JVD, no thyromegaly Respiratory: Lungs - diminshed BS, no use of accessary muscles. Cardiovascular - RRR no m/r/g, GI - Normal bowel sounds, no distended, soft. Extremeties - No edema, cyanosis or clubbing. Right knee is in dressing. Hemo/lymphatic/immune no lymphadenopathy Neurological Strength 2-3/5 in both arms, symmetrical; 3-4/5 in both legs, symmetrical (exam results may be not reliable). no focal neurological deficits. Psychiatry flat affect OBJ DATA Labs CBC & Chem 7: 08/07/20 05:25 08/07/20 05:25 Labs: Abnormal Lab Results 08/07/20 08/07/20 08/07/20 05:25 05:25 05:25 RBC 2.74 L Hgb 8.3 L Hct 25.2 L Plt Count 80 L MPV 11.9 H Neut % (Auto) 78.1 H Lymph % (Auto) 11.1 L Lymph # (Auto) 0.62 L Creatinine Glucose 114 H Calcium Phosphorus Total Protein 5.7 L Globulin Procalcitonin 0.11 H 08/06/20 08/06/20 08/05/20 05:35 05:34 05:18 RBC 2.66 L 3.69 L Hgb 8.1 L 11.2 L Hct 24.5 L 33.6 L Plt Count 76 L 125 L MPV 11.3 H 11.5 H Neut % (Auto) Lymph % (Auto) Lymph # (Auto) 0.91 L 1.30 L Creatinine 1.6 H Glucose Calcium 8.5 L Phosphorus 5.2 H Total Protein 5.3 L Globulin 1.9 L Procalcitonin Meds: Medications Acetaminophen (Tylenol) 500 mg PO HSP PRN; Protocol PRN Reason: Pain Albuterol Sulfate (Ventolin) 1 - 2 puff INH Q6HP PRN PRN Reason: Shortness Of Breath Albuterol/Ipratropium (Duoneb) 3 ml NEB QIDP PRN PRN Reason: Shortness Of Breath Aspirin (Aspirin) 81 mg PO BID [facility] Atorvastatin Calcium (Lipitor) [address] [facility] Bisacodyl (Dulcolax) 10 mg [place] Q2-3DAYS PRN PRN Reason: Constipation Bupropion HCl (Wellbutrin Xl) [address] [facility] Dextrose (Dextrose 50%) 0 ml IV UD PRN PRN Reason: Hypoglycemia Diagnostic Test (Pha) (Accu-Chek) [address] [facility] Last Admin: 08/07/20 11:19 Dose: Not Given Documented by: Docusate Sodium (Colace) [address] [facility] Ferrous Gluconate (Fergon) [address] [facility] Fluticasone Propionate (Flovent Hfa 44mcg) [address] [facility] Gabapentin (Neurontin) [address] [facility] Glucose (Insta-Glucose) 15 gm PO PRN PRN PRN Reason: Hypoglycemia Glucose (Insta-Glucose) 15 gm PO PRN PRN PRN Reason: Hypoglycemia Guaifenesin (Robitussin Dm) 5 ml PO HSP PRN PRN Reason: Cough Heparin Sodium (Porcine) (Heparin) 5,[address] [facility] Insulin Human Lispro (Humalog) [address] [facility]; Protocol Last Admin: 08/07/20 11:19 Dose: Not Given Documented by: Lactobacillus Rhamnosus (Culturelle) 1 cap PO DAILY@1200 [facility] Last Admin: 08/07/20 11:20 Dose: 1 cap Documented by: Lactulose (Cephulac) 10 gm PO DAILYP PRN PRN Reason: Constipation Levetiracetam (Keppra) [address] [facility] Levothyroxine Sodium (Synthroid) [address] [facility] Lorazepam (Ativan) 0.5 mg IV Q2HP PRN PRN Reason: Seizure Activity Magnesium Hydroxide (Milk Of Magnesia) 30 ml PO BIDP PRN PRN Reason: Constipation Magnesium Oxide (Magnesium Oxide) 400 mg PO DAILY@1800 [facility] Melatonin (Melatonin 3mg Tablet) [address] [facility] Memantine (Namenda) 10 mg PO DAILY [facility] Montelukast Sodium (Singular) [address] [facility] Morphine Sulfate (Morphine) 2 mg IV Q4HP PRN; Protocol PRN Reason: Per Pain Protocol Omeprazole (Prilosec) [address] [facility] Ondansetron HCl (Zofran) 4 mg IV Q4HP PRN; Protocol PRN Reason: Nausea And Vomiting Oxycodone/Acetaminophen (Percocet 5-325 Mg) 0 tab PO Q4HP PRN; Protocol PRN Reason: Per Pain Protocol Last Admin: 08/07/20 13:21 Dose: 2 tab Documented by: Artificial Tears ( Hypromellose) Eye Drops [address] [facility] Polyethylene Glycol (Miralax) 17 gm PO DAILYP PRN PRN Reason: Constipation Promethazine HCl (Phenergan) 12.5 mg PO Q8HP PRN PRN Reason: Nausea And Vomiting Last Admin: 08/07/20 13:22 Dose: 12.5 mg Documented by: Pyridoxine HCl (Vitamin B-6) 100 mg PO DAILY@1800 [facility] Senna (Senokot) [address] [facility] Sertraline HCl (Zoloft) [address] [facility] Simethicone (Mylicon) [address] [facility] Sodium Biphosphate/Sodium Phosphate (Fleets Adult) 1 dose [place] Q3-4DAYS PRN PRN Reason: Constipation Sodium Chloride (Saline Flush) [address] [facility] Throat Lozenges (Cepacol) 1 lozenge PO PRN PRN PRN Reason: Sore Throat A/P Narrative A/P Narrative: 1. Seizure 2. Pseudotumor cerebri One episode of seizure activity last night 1 mg ativan and 500mg Keppra were given last ngiht Keppra 500mg po bid MRI - pseudotumor cerebri. This is occasionally associated with seizures. Consider: Fluoroscopic guided lumbar puncture for CSF pressure measurements and concomitant CSF removal which may improve symptoms Discussed with the result and her seizure with neurology Lisa Lund who agreed with current keppra treatment. We can do LP in the hospital or can be done as an outpatient. Considering there is no more seizure and sleepy/lethargic at times, pt also complains of leg pain, not controlled today, I will decrease keppra to 250mg bid and start her on morphine 2mg iv Q4hrs prn. I feel her sleepiness could result from keppra. 2. S/p right total knee arthroplasty by Dr. Meade on 08/05 Post op management including pain control and DVT prophylaxis by Ortho team Spoke to orth Vanna Horn who cleared to discharge the pt. Asprin 81mg bid x 2wks for DVT prophylaxis and f/u with orth in 2 wks. 3. Hx of SLE Presumed stable 4. Hx of GI bleeding Presumed stable Omeprazole 5. Hx of conversion disorder Presumed stable 6. DM type 2 Diabetic diet Insulin sliding scale 7. HTN Continue home medication 8. ASHLEY or ASHLEY on CKD stage III Unknown chronicity Creatinine 1.1 03/20/2018 creatinine 09/25 today Avoid nephrotoxic meds Repeat renal function in morning 9. Weakness, both arms and legs? seems to be symmetrical MRI yesterday - no acute change Will repeat CT today 10. Thrombocytopenia 80 today Repeat plt in am 11. Hyperphosphatemia Repeat phos in am 12. DVT prophylaxis: Heparin 13. CODE STATUS: Research Leader Spent With Patient Time: Total time spent is greater than 50% in coordination of care (as documented) at patient's floor/unit and/or counseling patient:
[2020-08-07] MEDS: IPRATROPIUM/ALBUTEROL 3 ML AMPUL.NEB NEB PRN (15:40)
--- NOTE | 2020-08-07 15:41 | XRay Report ---
CLINICAL INFORMATION: r/o PNA COMPARISON: 09/25/2012 FINDINGS: The heart is mildly enlarged but unchanged. Mediastinum and pulmonary vessels are normal. Minimal scattered airspace disease and the mid and lower lungs is most compatible with scarring and/or atelectasis. No definite infiltrates and no effusions IMPRESSION: No acute disease. Mild stable cardiomegaly Interpreted and Authenticated by: Faizan Davila 08/07/20
--- NOTE | 2020-08-07 16:13 | General Surgery Progress Note ---
Surgery - Auxiliary Note Subjective Patient Information: Note initiated : 08/07/20 at 4:10 pm Service Date, if different from initiated Date: [] Patient: Yane Carranza 64 y/o F admitted on 08/07/20 for Right Total Knee Arthroplasty Jhony. Chief Complaint: Mild to moderate pain. bandages c/d/i NVI-distal Vital Signs Temp Pulse Pulse Pulse Resp BP BP 08/07/20 15:44 98.2 F 80 22 125/54 08/07/20 12:37 98.6 F 88 20 08/07/20 10:00 85 18 114/61 08/07/20 08:14 92 H 15 08/07/20 08:13 95 H 21 117/92 08/07/20 08:00 99.3 F H 89 83 83 20 08/07/20 06:01 89 19 119/64 08/07/20 06:00 90 18 08/07/20 04:01 98.5 F 95 H 29 H 132/86 08/07/20 04:00 94 H 94 H 25 H 08/07/20 02:02 95 H 20 08/07/20 02:01 94 H 18 126/62 08/07/20 02:00 93 H 16 08/07/20 00:02 96 H 08/07/20 00:01 96 H 20 123/93 08/07/20 00:00 95 H 98 H 23 H 08/06/20 23:02 100 H 19 08/06/20 23:01 97.8 F 99 H 19 143/74 08/06/20 22:55 08/06/20 22:00 95 H 18 139/68 08/06/20 21:00 93 H 25 H 96/83 08/06/20 20:00 97.6 F 91 H 89 30 H 122/55 08/06/20 19:53 90 08/06/20 19:00 94 H 19 125/64 08/06/20 18:00 94 H 20 122/63 08/06/20 17:35 94 H 14 08/06/20 16:41 71 115/64 BP Pulse Ox 08/07/20 15:44 97 08/07/20 12:37 108/61 95 08/07/20 10:00 92 08/07/20 08:14 93 08/07/20 08:13 96 08/07/20 08:00 117/92 94 08/07/20 06:01 91 08/07/20 06:00 90 08/07/20 04:01 91 08/07/20 04:00 92 08/07/20 02:02 91 08/07/20 02:01 93 08/07/20 02:00 92 08/07/20 00:02 92 08/07/20 00:01 91 08/07/20 00:00 93 08/06/20 23:02 90 08/06/20 23:01 90 08/06/20 22:55 93 08/06/20 22:00 90 08/06/20 21:00 86 L 08/06/20 20:00 92 08/06/20 19:53 92 08/06/20 19:00 91 08/06/20 18:00 95 08/06/20 17:35 109/87 90 08/06/20 16:41 94 Intake and Output 08/07/20 08/07/20 08/07/20 05:59 13:59 21:59 Intake Total 1985 995 Output Total 1100 750 Balance 885 245 Intake: IV 985 275 Sodium Chloride 0.9% 1,000 ml @ 985 275 100 mls/hr IV .Q10H [facility] Rx#: [id number] Oral 1000 720 Output: Void Amount 1100 750 Other: Meal Lunch Percent of Meal Consumed 75% Feeding Ability Independent Urine Appearance Clear Clear Urine Color Bright Yellow Pale Abnormal Labs 07/30/20 07/30/20 08/05/20 15:03 15:03 05:18 RBC 3.69 L Hgb 11.2 L Hct 33.6 L Plt Count 125 L MPV 11.5 H Neut % (Auto) Lymph % (Auto) Lymph # (Auto) 1.30 L BUN 25 H Creatinine 1.4 H Glucose Calcium Phosphorus Total Protein Globulin Procalcitonin Ur Leukocyte Esterase 25 A Urine Mucus Few A 08/06/20 08/06/20 08/07/20 05:34 05:35 05:25 RBC 2.66 L 2.74 L Hgb 8.1 L 8.3 L Hct 24.5 L 25.2 L Plt Count 76 L 80 L MPV 11.3 H 11.9 H Neut % (Auto) 78.1 H Lymph % (Auto) 11.1 L Lymph # (Auto) 0.91 L 0.62 L BUN Creatinine 1.6 H Glucose Calcium 8.5 L Phosphorus 5.2 H Total Protein 5.3 L Globulin 1.9 L Procalcitonin Ur Leukocyte Esterase Urine Mucus 08/07/20 08/07/20 05:25 05:25 RBC Hgb Hct Plt Count MPV Neut % (Auto) Lymph % (Auto) Lymph # (Auto) BUN Creatinine Glucose 114 H Calcium Phosphorus Total Protein 5.7 L Globulin Procalcitonin 0.11 H Ur Leukocyte Esterase Urine Mucus 2 days s/p R TKA-stabel from ortho standpoint -Mobilize with PT, pt needs significant encouragement. okay to push aggressively -ASA 81mg bid x 2 weeks for DVT prophylaxis. -WBAT -f/u at [facility] on 08/24/20 for re-check -cont medical management per hospitalist. -okay to discharge from ortho standpoint.
[2020-08-07] MEDS: MAGNESIUM OXIDE 400 MG TABLET PO SCH (17:30)
[2020-08-07] MEDS: PYRIDOXINE 100 MG TABLET PO SCH (17:30)
[2020-08-07] MEDS: SIMETHICONE 80 MG TAB.CHEW CHEWED SCH (20:52)
[2020-08-07] MEDS: FERROUS GLUCONATE 324 MG TABLET PO SCH (20:53)
[2020-08-07] MEDS: MONTELUKAST 10 MG TABLET PO SCH (20:53)
[2020-08-07] MEDS: SENNOSIDES 1 TABLET PO SCH (20:53)
[2020-08-07] MEDS: MELATONIN 3 MG TABLET PO SCH (20:54)
[2020-08-07] MEDS ORDERED: guaiFENesin/DEXTROMETHORPHAN ORAL SOL PO PRN (21:00)
[2020-08-07] MEDS ORDERED: ACETAMINOPHEN 500 MG TABLET PO PRN (21:00)
[2020-08-07] MEDS ORDERED: levETIRAcetam 500 MG TABLET PO SCH (21:00)
[2020-08-07] MEDS ORDERED: ATORVASTATIN 10 MG TABLET PO SCH (21:00)
[2020-08-08] MEDS: oxyCODONE/APAP 5/325MG TABLET PO PRN ×5 (04:48→21:03)
[2020-08-08] MEDS: 0.9 % SODIUM CHLORIDE 10 ML SYRINGE IV SCH ×3 (04:48→20:04)
[2020-08-08] MEDS: IPRATROPIUM/ALBUTEROL 3 ML AMPUL.NEB NEB PRN (05:42)
[2020-08-08 07:40] LABS: Basophils # (Auto) 0.01 K/mcL (0.00-0.20); Basophils % (Auto) 0.2 % (0.0-2.0); Eosinophils # (Auto) 0.12 K/mcL (0.00-0.70); Eosinophils % (Auto) 2.9 % (0.0-7.0); Hematocrit 21.8 % (36.0-48.0); Hemoglobin 7.4 g/dL (12.0-15.0); Lymphocytes # (Auto) 0.76 K/mcL (1.50-4.80); Lymphocytes % (Auto) 18.2 % (15.0-49.0); Mean Cell Volume 87.9 fL (80.0-100.0); Mean Corpuscular HGB Conc 33.9 g/dL (31.0-36.0); Monocytes # (Auto) 0.38 K/mcL (0.10-0.90); Monocytes % (Auto) 9.1 % (1.0-12.0); Neutrophils % (Auto) 69.6 % (38.0-78.0); Platelet Count 86 K/mcL (140-440); RBC 2.48 M/mcL (4.00-5.20); Red Cell Distribution Width 12.3 % (11.5-14.5); WBC 4.2 K/mcL (4.5-11.0)
[2020-08-08] MEDS: INSULIN LISPRO 1 UNIT/0.01 ML UNIT SQ SCH ×4 (07:43→20:04)
[2020-08-08] MEDS: LEVOTHYROXINE 75 MCG TABLET PO SCH (07:44)
[2020-08-08] MEDS: OMEPRAZOLE 20 MG CAPSULE PO SCH (07:44)
[2020-08-08] MEDS: PROMETHAZINE 25 MG TABLET PO PRN ×2 (07:46→17:12)
[2020-08-08 08:12] LABS: ALT/SGPT 8 U/L (<40); AST/SGOT 16 U/L (<32); Albumin 3.6 gm/dL (3.2-5.2); Albumin/Globulin Ratio 1.4 (1.0-2.3); Alkaline Phosphatase 81 U/L (39-117); Bilirubin,Total 0.5 mg/dL (0.1-1.0); Blood Urea Nitrogen 15 mg/dL (8-23); Calcium 9.1 mg/dL (8.6-10.4); Carbon Dioxide 24 mmol/L (22-30); Chloride 99 mmol/L (96-108); Globulin 2.6 gm/dL (2.2-3.7); Glomerular Filtration Rate 59; Glucose 100 mg/dL (70-105); Phosphorous 3.4 mg/dL (2.5-4.5)
[2020-08-08] MEDS ORDERED: LACTULOSE 20 GM/30 ML ORAL.SOL PO PRN (08:15)
[2020-08-08] MEDS: GABAPENTIN 300 MG CAPSULE PO SCH ×3 (10:33→20:06)
[2020-08-08] MEDS: MEMANTINE 10 MG TABLET PO SCH (10:33)
[2020-08-08] MEDS: ASPIRIN 81 MG TAB.CHEW PO SCH ×2 (10:33→20:07)
[2020-08-08] MEDS: SERTRALINE 100 MG TABLET PO SCH (10:33)
[2020-08-08] MEDS: levETIRAcetam 500 MG TABLET PO SCH ×2 (10:34→20:06)
[2020-08-08] MEDS: buPROPion 150 MG TAB.XL.24H PO SCH (10:35)
[2020-08-08] MEDS: DOCUSATE SODIUM 100 MG CAPSULE PO SCH ×2 (10:37→20:07)
[2020-08-08] MEDS: HEPARIN 5,000 UNIT/ML VIAL SQ SCH (10:38)
[2020-08-08] MEDS: [UNRECOGNIZED DRUG - OTHER] OU SCH ×2 (10:45→20:10)
[2020-08-08] MEDS: HYPROMELLOSE OU SCH ×2 (10:45→20:10)
[2020-08-08] MEDS: LACTOBACILLUS 1 CAPSULE PO SCH (11:37)
--- NOTE | 2020-08-08 11:41 | Internal Med Progress Note ---
SUBJECTIVE Subjective Patient information: Note initiated : 08/08/20 at 11:27 am Service Date, if different from initiated Date: [] Patient: Yane Carranza 65 y/o F admitted on 08/07/20 for Right Total Knee Arthroplasty Jhony. Chief Complaint: [] Patient is a 64-year-old female with a history of seizure disorder, SLE, GI bleeding, conversion disorder type 2 diabetes, and high blood pressure who u nderwent right knee replacement yesterday afternoon by Dr. Meade. Last night around midnight she had one episode of seizure, presenting with both arms myoclonic shaking and holding a pillow to her chest. I was called for this event. I saw and examined patient immediately in patient room. As per nurse, during the event, pt did not lose consciousness, no urinary or bowel incontinence. But patient did complains of mild headache. Otherwise patient denied dizziness, nausea, vomiting, abdominal pain, or dysuria. No change in vision. cc:: CC: Edward Meade 08/07 Pt no longer has episode of seizure. She was sleepy yesterday and today she is more alert and awake. MRI of brain showed pseudotumor cerebri. This is occasionally associated with seizures. Consider: Fluoroscopic guided lumbar puncture for CSF pressure measurements and concomitant CSF removal which may improve symptoms Discussed with the result and her seizure with neurology Lisa Lund who agreed with current keppra treatment. We can do LP in the hospital or can be done as an outpatient. Could not reach her son. Considering there is no more seizure and sleepy/lethargic at times, pt also complains of leg pain, not controlled today, I will decrease keppra to 250mg bid and start her on morphine 2mg iv Q4hrs prn. I feel her sleepiness could result from keppra. Spoke to orth Vanna Horn who cleared to discharge the pt. Asprin 81mg bid x 2wks for DVT prophylaxis and f/u with orth in 2 wks. 08/08 Patient does not have any complaints. No longer has seizure. She is more alert and can answer questions. Both arm weakness symmetrical but right leg weaker than left leg. Donot know the weakness is acute or chronic. CT of head without contrast negative. NO MRI available at weekend at our hospital. Pt fully understood this. Repeat MRI on Monday. Hb dropped to 7.4, platelets 86, creatinine 1.0, hemoglobin A1c 5.3. Considering her condition, I would like to give her a 1 unit blood transfusion. Guaiac test was ordered. Review of Systems Review of systems: Positive for seizure and mild headache. All other systems were reviewed and are negative. Constitutional Vitals: Vital Signs Temp Pulse Resp BP Pulse Ox 97.9 F 85 16 103/54 97 08/08/20 08:00 08/08/20 08:00 08/08/20 08:00 08/08/20 08:00 08/08/20 08:00 Period Temp Pulse Resp BP Sys/Anderson Pulse Ox Last 24 Hr 97.7 F-99.3 F 66-88 15-22 100-126/43-67 92-97 Intake and Output 08/07/20 08/08/20 08/08/20 21:59 05:59 13:59 Intake Total 1000 600 240 Output Total 825 1275 400 Balance 175 -675 -160 Weight 92.249 kg Intake & Output: Intake & Output 08/07/20 08/08/20 08/08/20 21:59 05:59 13:59 Intake Total 1000 600 240 Output Total 825 1275 400 Balance 175 -675 -160 Weight 92.249 kg Intake: Oral 1000 600 240 Output: Void Amount 825 1275 400 Other: Meal Dinner Percent of Meal Consumed 50% Feeding Ability Independent Urine Appearance Clear Urine Color Straw Bright Yellow Additional findings Additional findings: General - alert and awake, No acute distress Eyes - PERRLA, EOM intact ENT no rhinorrhea, no noticeable or palpable swelling, no redness or rash around throat or on face Neck supple, no JVD, no thyromegaly Respiratory: Lungs - diminshed BS, no use of accessary muscles. Cardiovascular - RRR no m/r/g, GI - Normal bowel sounds, no distended, soft. Extremeties - No cyanosis or clubbing. Pitting edema++ in right leg and right nee is in dressing. Hemo/lymphatic/immune no lymphadenopathy Neurological Strength 2-3/5 in both arms, symmetrical; 3/5 in right leg, 4-5/5 in left leg. Psychiatry flat affect OBJ DATA Labs CBC & Chem 7: 08/08/20 06:03 08/08/20 06:03 Labs: Abnormal Lab Results 08/08/20 08/07/20 08/07/20 06:03 05:25 05:25 WBC 4.2 L RBC 2.48 L Hgb 7.4 L Hct 21.8 L Plt Count 86 L MPV 12.0 H Neut % (Auto) Lymph % (Auto) Lymph # (Auto) 0.76 L Creatinine Glucose 114 H Calcium Phosphorus Total Protein 5.7 L Globulin Procalcitonin 0.11 H 08/07/20 08/06/20 08/06/20 05:25 05:35 05:34 WBC RBC 2.74 L 2.66 L Hgb 8.3 L 8.1 L Hct 25.2 L 24.5 L Plt Count 80 L 76 L MPV 11.9 H 11.3 H Neut % (Auto) 78.1 H Lymph % (Auto) 11.1 L Lymph # (Auto) 0.62 L 0.91 L Creatinine 1.6 H Glucose Calcium 8.5 L Phosphorus 5.2 H Total Protein 5.3 L Globulin 1.9 L Procalcitonin Meds: Medications Acetaminophen (Tylenol) 500 mg PO HSP PRN; Protocol PRN Reason: Pain Albuterol Sulfate (Ventolin) 1 - 2 puff INH Q6HP PRN PRN Reason: Shortness Of Breath Last Admin: 08/08/20 10:44 Dose: 1 puff Documented by: Albuterol/Ipratropium (Duoneb) 3 ml NEB QIDP PRN PRN Reason: Shortness Of Breath Last Admin: 08/08/20 05:42 Dose: 3 ml Documented by: Aspirin (Aspirin) 81 mg PO BID [facility] Last Admin: 08/08/20 10:33 Dose: 81 mg Documented by: Atorvastatin Calcium (Lipitor) 40 mg PO HS WENDY Bisacodyl (Dulcolax) 10 mg [place] Q2-3DAYS PRN PRN Reason: Constipation Bupropion HCl (Wellbutrin Xl) 150 mg PO QAM [facility] Last Admin: 08/08/20 10:35 Dose: 150 mg Documented by: Dextrose (Dextrose 50%) 0 ml IV UD PRN PRN Reason: Hypoglycemia Diagnostic Test (Pha) (Accu-Chek) 1 each FS ACHS [facility] Last Admin: 08/08/20 07:40 Dose: 1 each Documented by: Docusate Sodium (Colace) 100 mg PO BID [facility] Last Admin: 08/08/20 10:37 Dose: 100 mg Documented by: Ferrous Gluconate (Fergon) 324 mg PO [facility] Last Admin: 08/07/20 20:53 Dose: 324 mg Documented by: Fluticasone Propionate (Flovent Hfa 44mcg) 1 puff INH BID [facility] Last Admin: 08/07/20 21:02 Dose: 1 puff Documented by: Gabapentin (Neurontin) 600 mg PO TID [facility] Last Admin: 08/08/20 10:33 Dose: 600 mg Documented by: Glucose (Insta-Glucose) 15 gm PO PRN PRN PRN Reason: Hypoglycemia Glucose (Insta-Glucose) 15 gm PO PRN PRN PRN Reason: Hypoglycemia Guaifenesin (Robitussin Dm) 5 ml PO HSP PRN PRN Reason: Cough Insulin Human Lispro (Humalog) 0 unit SQ ACHS [facility]; Protocol Last Admin: 08/08/20 07:43 Dose: Not Given Documented by: Lactobacillus Rhamnosus (Culturelle) 1 cap PO DAILY@1200 [facility] Last Admin: 08/07/20 11:20 Dose: 1 cap Documented by: Lactulose (Cephulac) 10 gm PO DAILYP PRN PRN Reason: Constipation Lactulose (Cephulac) 10 gm PO DAILYP PRN PRN Reason: Constipation Levetiracetam (Keppra) 250 mg PO BID [facility] Last Admin: 08/08/20 10:34 Dose: 250 mg Documented by: Levothyroxine Sodium (Synthroid) 75 mcg PO ACB [facility] Last Admin: 08/08/20 07:44 Dose: 75 mcg Documented by: Lorazepam (Ativan) 0.5 mg IV Q2HP PRN PRN Reason: Seizure Activity Lorazepam (Ativan) 0.5 mg PO Q8HP PRN PRN Reason: Anxiety Magnesium Hydroxide (Milk Of Magnesia) 30 ml PO BIDP PRN PRN Reason: Constipation Magnesium Oxide (Magnesium Oxide) 400 mg PO DAILY@1800 [facility] Last Admin: 08/07/20 17:30 Dose: 400 mg Documented by: Melatonin (Melatonin 3mg Tablet) 3 mg PO [facility] Last Admin: 08/07/20 20:54 Dose: 3 mg Documented by: Memantine (Namenda) 10 mg PO DAILY [facility] Last Admin: 08/08/20 10:33 Dose: 10 mg Documented by: Montelukast Sodium (Singular) 10 mg PO [facility] Last Admin: 08/07/20 20:53 Dose: 10 mg Documented by: Morphine Sulfate (Morphine) 2 mg IV Q4HP PRN; Protocol PRN Reason: Per Pain Protocol Omeprazole (Prilosec) 20 mg PO ACB [facility] Last Admin: 08/08/20 07:44 Dose: 20 mg Documented by: Ondansetron HCl (Zofran) 4 mg IV Q4HP PRN; Protocol PRN Reason: Nausea And Vomiting Oxycodone/Acetaminophen (Percocet 5-325 Mg) 0 tab PO Q4HP PRN; Protocol PRN Reason: Per Pain Protocol Last Admin: 08/08/20 09:47 Dose: 2 tab Documented by: Artificial Tears ( Hypromellose) Eye Drops 1 dose OU BID [facility] Last Admin: 08/08/20 10:45 Dose: 1 dose Documented by: Polyethylene Glycol (Miralax) 17 gm PO DAILYP PRN PRN Reason: Constipation Promethazine HCl (Phenergan) 12.5 mg PO Q8HP PRN PRN Reason: Nausea And Vomiting Last Admin: 08/08/20 07:46 Dose: 12.5 mg Documented by: Pyridoxine HCl (Vitamin B-6) 100 mg PO DAILY@1800 [facility] Last Admin: 08/07/20 17:30 Dose: 100 mg Documented by: Lanny (Senokot) 2 tab PO [facility] Last Admin: 08/07/20 20:53 Dose: 2 tab Documented by: Sertraline HCl (Zoloft) 100 mg PO QDAY [facility] Last Admin: 08/08/20 10:33 Dose: 100 mg Documented by: Simethicone (Mylicon) 80 mg CHEWED [facility] Last Admin: 08/07/20 20:52 Dose: 80 mg Documented by: Sodium Biphosphate/Sodium Phosphate (Fleets Adult) 1 dose [place] Q3-4DAYS PRN PRN Reason: Constipation Sodium Chloride (Saline Flush) 10 ml IV Q8 [facility] Last Admin: 08/08/20 04:48 Dose: 10 ml Documented by: Throat Lozenges (Cepacol) 1 lozenge PO PRN PRN PRN Reason: Sore Throat A/P Narrative A/P Narrative: 1. Seizure 2. Pseudotumor cerebri One episode of seizure Decreased Keppra to 250mg po bid and start her on morphine 2mg iv Q4hrs prn. MRI - pseudotumor cerebri. This is occasionally associated with seizures. Consi amari: Fluoroscopic guided lumbar puncture for CSF pressure measurements and concomitant CSF removal which may improve symptoms Discussed with the result and her seizure with neurology Lisa Lund who agreed with current keppra treatment. We can do LP in the hospital or can be done as an outpatient. 2. S/p right total knee arthroplasty by Dr. Meade on 08/05 Post op management including pain control and DVT prophylaxis by Ortho team Spoke to orth Vanna Horn who cleared to discharge the pt. Asprin 81mg bid x 2wks for DVT prophylaxis and f/u at [facility] on 08/24/20 for re-check. 3. Hx of SLE Presumed stable 4. Hx of GI bleeding Presumed stable Omeprazole 5. Hx of conversion disorder Presumed stable 6. DM type 2 Diabetic diet Insulin sliding scale 7. HTN Continue home medication 8. ASHLEY or ASHLEY on CKD stage III Unknown chronicity Creatinine 1.1 03/20/2018 creatinine back to normal Avoid nephrotoxic meds Repeat renal function in morning 9. Weakness, both arms and right leg? Unknown chronicity MRI on 08/06 - no acute change CT of head today - negative for acute change Could be due to a chronic brain pathology? Will repeat MRI on Monday 10. Thrombocytopenia 86 today Repeat plt in am 11. Hyperphosphatemia Repeat phos in am 12. Anemia Hb 7.4 today Considering her condition, I would like to give her a 1 unit blood transfusion. Guaiac test was ordered. 13. DVT prophylaxis: SCD Heparin is on hold due to Hb dropping. 14. CODE STATUS: [employer] Spent With Patient Time: Total time spent is greater than 50% in coordination of care (as documented) at patient's floor/unit and/or counseling patient:
[2020-08-08] MEDS ORDERED: 0.9 % SODIUM CHLORIDE 250 ML IV SCH (12:00)
--- NOTE | 2020-08-08 13:45 | Ultrasound Report ---
CLINICAL INFORMATION: Right leg pain and swelling COMPARISON: None. FINDINGS: The entire deep venous system including the common femoral, superficial femoral, popliteal and paired trifurcation calf veins are easily compressible and show normal venous blood flow on color and spectral Doppler. No evidence of thrombus IMPRESSION: No evidence of deep vein thrombosis. 6 x 3 cm hematoma medial periarticular region of the tibial femoral joint Interpreted and Authenticated by: Faizan Davila 08/08/20
--- NOTE | 2020-08-08 14:00 | Cat Scan Report ---
CLINICAL INFORMATION: Headache and right leg weakness COMPARISON: Brain MRI 08/06/2020. Head CT 09/15/2012 TECHNIQUE: 2.5 mm helical slices were obtained in the skull base to vertex. Following reconstruction, axial reformatted images were reviewed at bone and parenchymal windows. The exam was performed using radiation dose optimization techniques including, but not limited to, automated exposure control, adjustment of the mA and/or kV according to patient size and use of iterative reconstruction technique. FINDINGS: The ventricles, sulci, fissures, and cisterns are normal in size and configuration. No extra-axial fluid collections are identified. Moderately heavy finding of calcifications unchanged 2011 and the sella is unchanged There is no evidence of hemorrhage, mass effect, or edema. Bone windows show no osseous abnormality. IMPRESSION: Empty sella stable since 2011.. Pseudotumor) was recently diagnosed on recent brain MRI. This exam would be compatible with that diagnosis. Again, suggest fluoroscopic guided lumbar puncture for CSF pressure measurements in the common and high volume CSF removal which may improve symptoms Interpreted and Authenticated by: Faizan Davila 08/08/20
[2020-08-08] MEDS: FLUTICASONE HFA 44MCG INHALER INH SCH ×2 (15:27→20:10)
[2020-08-08] MEDS: LORazepam 0.5 MG TABLET PO PRN ×2 (15:31→23:55)
[2020-08-08] MEDS: MAGNESIUM OXIDE 400 MG TABLET PO SCH (17:13)
[2020-08-08] MEDS: PYRIDOXINE 100 MG TABLET PO SCH (17:13)
[2020-08-08] MEDS: SENNOSIDES 1 TABLET PO SCH (20:06)
[2020-08-08] MEDS: SIMETHICONE 80 MG TAB.CHEW CHEWED SCH (20:06)
[2020-08-08] MEDS: FERROUS GLUCONATE 324 MG TABLET PO SCH (20:07)
[2020-08-08] MEDS: ATORVASTATIN 40 MG TABLET PO SCH (20:07)
[2020-08-08] MEDS: MONTELUKAST 10 MG TABLET PO SCH (20:07)
[2020-08-08] MEDS: MELATONIN 3 MG TABLET PO SCH (20:07)
[2020-08-09] MEDS: oxyCODONE/APAP 5/325MG TABLET PO PRN ×4 (02:41→20:20)
[2020-08-09] MEDS: 0.9 % SODIUM CHLORIDE 10 ML SYRINGE IV SCH ×3 (05:44→20:21)
[2020-08-09 06:23] LABS: Basophils # (Auto) 0.02 K/mcL (0.00-0.20); Basophils % (Auto) 0.4 % (0.0-2.0); Eosinophils # (Auto) 0.18 K/mcL (0.00-0.70); Eosinophils % (Auto) 3.9 % (0.0-7.0); Hematocrit 24.8 % (36.0-48.0); Hemoglobin 8.6 g/dL (12.0-15.0); Lymphocytes # (Auto) 0.68 K/mcL (1.50-4.80); Lymphocytes % (Auto) 14.6 % (15.0-49.0); Mean Cell Volume 88.3 fL (80.0-100.0); Mean Corpuscular HGB Conc 34.7 g/dL (31.0-36.0); Mean Platelet Volume 11.5 fL (7.4-10.4); Monocytes # (Auto) 0.39 K/mcL (0.10-0.90); Monocytes % (Auto) 8.4 % (1.0-12.0); Neutrophils % (Auto) 72.7 % (38.0-78.0); Platelet Count 100 K/mcL (140-440); RBC 2.81 M/mcL (4.00-5.20); Red Cell Distribution Width 12.5 % (11.5-14.5); WBC 4.7 K/mcL (4.5-11.0)
[2020-08-09] MEDS: INSULIN LISPRO 1 UNIT/0.01 ML UNIT SQ SCH ×4 (09:14→20:21)
[2020-08-09] MEDS: levETIRAcetam 500 MG TABLET PO SCH ×2 (09:22→20:19)
[2020-08-09] MEDS: SERTRALINE 100 MG TABLET PO SCH (09:22)
[2020-08-09] MEDS: GABAPENTIN 300 MG CAPSULE PO SCH ×3 (09:22→20:19)
[2020-08-09] MEDS: buPROPion 150 MG TAB.XL.24H PO SCH (09:23)
[2020-08-09] MEDS: DOCUSATE SODIUM 100 MG CAPSULE PO SCH ×2 (09:24→20:20)
[2020-08-09] MEDS: OMEPRAZOLE 20 MG CAPSULE PO SCH (09:24)
[2020-08-09] MEDS: ASPIRIN 81 MG TAB.CHEW PO SCH ×2 (09:24→20:20)
[2020-08-09] MEDS: LEVOTHYROXINE 75 MCG TABLET PO SCH (09:24)
[2020-08-09] MEDS: MEMANTINE 10 MG TABLET PO SCH (09:24)
[2020-08-09] MEDS: HYPROMELLOSE OU SCH ×2 (09:27→20:21)
[2020-08-09] MEDS: [UNRECOGNIZED DRUG - OTHER] OU SCH ×2 (09:27→20:21)
[2020-08-09] MEDS: IPRATROPIUM/ALBUTEROL 3 ML AMPUL.NEB NEB PRN (09:57)
[2020-08-09] MEDS: FLUTICASONE HFA 44MCG INHALER INH SCH ×2 (10:35→20:21)
[2020-08-09] MEDS: LACTOBACILLUS 1 CAPSULE PO SCH (11:56)
--- NOTE | 2020-08-09 12:57 | Internal Med Progress Note ---
SUBJECTIVE Subjective Patient information: Note initiated : 08/09/20 at 12:52 pm Service Date, if different from initiated Date: [] Patient: Yane Carranza 65 y/o F admitted on 08/07/20 for Right Total Knee Arthroplasty Jhony. Chief Complaint: [] Patient is a 64-year-old female with a history of seizure disorder, SLE, GI bleeding, conversion disorder type 2 diabetes, and high blood pressure who u nderwent right knee replacement yesterday afternoon by Dr. Meade. Last night around midnight she had one episode of seizure, presenting with both arms myoclonic shaking and holding a pillow to her chest. I was called for this event. I saw and examined patient immediately in patient room. As per nurse, during the event, pt did not lose consciousness, no urinary or bowel incontinence. But patient did complains of mild headache. Otherwise patient denied dizziness, nausea, vomiting, abdominal pain, or dysuria. No change in vision. cc:: CC: Edward Meade 08/07 Pt no longer has episode of seizure. She was sleepy yesterday and today she is more alert and awake. MRI of brain showed pseudotumor cerebri. This is occasionally associated with seizures. Consider: Fluoroscopic guided lumbar puncture for CSF pressure measurements and concomitant CSF removal which may improve symptoms Discussed with the result and her seizure with neurology Lisa Lund who agreed with current keppra treatment. We can do LP in the hospital or can be done as an outpatient. Could not reach her son. Considering there is no more seizure and sleepy/lethargic at times, pt also complains of leg pain, not controlled today, I will decrease keppra to 250mg bid and start her on morphine 2mg iv Q4hrs prn. I feel her sleepiness could result from keppra. Spoke to orth Vanna Horn who cleared to discharge the pt. Asprin 81mg bid x 2wks for DVT prophylaxis and f/u with orth in 2 wks. 08/08 Patient does not have any complaints. No longer has seizure. She is more alert and can answer questions. Both arm weakness symmetrical but right leg weaker than left leg. Donot know the weakness is acute or chronic. CT of head without contrast negative. NO MRI available at weekend at our hospital. Pt fully understood this. Repeat MRI on Monday. Hb dropped to 7.4, platelets 86, creatinine 1.0, hemoglobin A1c 5.3. Considering her condition, I would like to give her a 1 unit blood transfusion. Guaiac test was ordered. 08/09 No new complaints. No seizure. Hb went up to 8.6 and plt went to 100. No overnight acute events Awaiting for placement-[facility] Review of Systems Review of systems: Positive for seizure and mild headache. All other systems were reviewed and are negative. Constitutional Vitals: Vital Signs Temp Pulse Resp BP Pulse Ox 98.6 F 80 20 123/68 96 08/09/20 08:00 08/09/20 09:57 08/09/20 09:57 08/09/20 08:00 08/09/20 08:00 Period Temp Pulse Resp BP Sys/Anderson Pulse Ox Last 24 Hr 97.7 F-98.9 F 74-88 16-20 110-133/40-73 93-96 Intake and Output 08/08/20 08/09/20 08/09/20 21:59 05:59 13:59 Intake Total 800 650 480 Output Total 900 1150 400 Balance -100 -500 80 Weight 91.399 kg Intake & Output: Intake & Output 08/08/20 08/09/20 08/09/20 21:59 05:59 13:59 Intake Total 800 650 480 Output Total 900 1150 400 Balance -100 -500 80 Weight 91.399 kg Intake: Oral 800 300 480 Blood Product 350 Output: Void Amount 900 1150 400 Other: Meal Breakfast Percent of Meal Consumed 100% Urine Appearance Clear Clear Urine Color Bright Yellow Pale Bright Yellow # Voids 350 Additional findings Additional findings: General - alert and awake, No acute distress Eyes - PERRLA, EOM intact ENT no rhinorrhea, no noticeable or palpable swelling, no redness or rash around throat or on face Neck supple, no JVD, no thyromegaly Respiratory: Lungs - diminshed BS, no use of accessary muscles. Cardiovascular - RRR no m/r/g, GI - Normal bowel sounds, no distended, soft. Extremeties - No cyanosis or clubbing. Pitting edema++ in right leg and right nee is in dressing. Hemo/lymphatic/immune no lymphadenopathy Neurological Strength 2-3/5 in both arms, symmetrical; 3/5 in right leg, 4-5/5 in left leg. Psychiatry flat affect OBJ DATA Labs CBC & Chem 7: 08/09/20 05:18 08/08/20 06:03 Labs: Abnormal Lab Results 08/09/20 08/08/20 08/07/20 05:18 06:03 05:25 WBC 4.2 L RBC 2.81 L 2.48 L Hgb 8.6 L 7.4 L Hct 24.8 L 21.8 L Plt Count 100 L 86 L MPV 11.5 H 12.0 H Neut % (Auto) Lymph % (Auto) 14.6 L Lymph # (Auto) 0.68 L 0.76 L Glucose Total Protein Procalcitonin 0.11 H 08/07/20 08/07/20 05:25 05:25 WBC RBC 2.74 L Hgb 8.3 L Hct 25.2 L Plt Count 80 L MPV 11.9 H Neut % (Auto) 78.1 H Lymph % (Auto) 11.1 L Lymph # (Auto) 0.62 L Glucose 114 H Total Protein 5.7 L Procalcitonin Meds: Medications Acetaminophen (Tylenol) 500 mg PO HSP PRN; Protocol PRN Reason: Pain Albuterol Sulfate (Ventolin) 1 - 2 puff INH Q6HP PRN PRN Reason: Shortness Of Breath Last Admin: 08/08/20 10:44 Dose: 1 puff Documented by: Albuterol/Ipratropium (Duoneb) 3 ml NEB QIDP PRN PRN Reason: Shortness Of Breath Last Admin: 08/09/20 09:57 Dose: 3 ml Documented by: Aspirin (Aspirin) 81 mg PO BID [facility] Last Admin: 08/09/20 09:24 Dose: 81 mg Documented by: Atorvastatin Calcium (Lipitor) 40 mg PO HS [facility] Last Admin: 08/08/20 20:07 Dose: 40 mg Documented by: Bisacodyl (Dulcolax) 10 mg AL Q2-3DAYS PRN PRN Reason: Constipation Bupropion HCl (Wellbutrin Xl) 150 mg PO QAM [facility] Last Admin: 08/09/20 09:23 Dose: 150 mg Documented by: Dextrose (Dextrose 50%) 0 ml IV UD PRN PRN Reason: Hypoglycemia Diagnostic Test (Pha) (Accu-Chek) 1 each FS ACHS [facility] Last Admin: 08/09/20 11:57 Dose: 1 each Documented by: Docusate Sodium (Colace) 100 mg PO BID [facility] Last Admin: 08/09/20 09:24 Dose: 100 mg Documented by: Ferrous Gluconate (Fergon) 324 mg PO HS [facility] Last Admin: 08/08/20 20:07 Dose: 324 mg Documented by: Fluticasone Propionate (Flovent Hfa 44mcg) 1 puff INH BID [facility] Last Admin: 08/09/20 10:35 Dose: 1 puff Documented by: Gabapentin (Neurontin) 600 mg PO TID [facility] Last Admin: 08/09/20 09:22 Dose: 600 mg Documented by: Glucose (Insta-Glucose) 15 gm PO PRN PRN PRN Reason: Hypoglycemia Glucose (Insta-Glucose) 15 gm PO PRN PRN PRN Reason: Hypoglycemia Guaifenesin (Robitussin Dm) 5 ml PO HSP PRN PRN Reason: Cough Insulin Human Lispro (Humalog) 0 unit SQ [facility]; Protocol Last Admin: 08/09/20 11:59 Dose: Not Given Documented by: Lactobacillus Rhamnosus (Culturelle) 1 cap PO DAILY@1200 [facility] Last Admin: 08/09/20 11:56 Dose: 1 cap Documented by: Lactulose (Cephulac) 10 gm PO DAILYP PRN PRN Reason: Constipation Lactulose (Cephulac) 10 gm PO DAILYP PRN PRN Reason: Constipation Levetiracetam (Keppra) 250 mg PO BID [facility] Last Admin: 08/09/20 09:22 Dose: 250 mg Documented by: Levothyroxine Sodium (Synthroid) 75 mcg PO ACB [facility] Last Admin: 08/09/20 09:24 Dose: 75 mcg Documented by: Lorazepam (Ativan) 0.5 mg IV Q2HP PRN PRN Reason: Seizure Activity Lorazepam (Ativan) 0.5 mg PO Q8HP PRN PRN Reason: Anxiety Last Admin: 08/08/20 23:55 Dose: 0.5 mg Documented by: Magnesium Hydroxide (Milk Of Magnesia) 30 ml PO BIDP PRN PRN Reason: Constipation Last Admin: 08/09/20 03:04 Dose: 30 ml Documented by: Magnesium Oxide (Magnesium Oxide) 400 mg PO DAILY@1800 [facility] Last Admin: 08/08/20 17:13 Dose: 400 mg Documented by: Melatonin (Melatonin 3mg Tablet) 3 mg PO [facility] Last Admin: 08/08/20 20:07 Dose: 3 mg Documented by: Memantine (Namenda) 10 mg PO DAILY [facility] Last Admin: 08/09/20 09:24 Dose: 10 mg Documented by: Montelukast Sodium (Singular) 10 mg PO [facility] Last Admin: 08/08/20 20:07 Dose: 10 mg Documented by: Morphine Sulfate (Morphine) 2 mg IV Q4HP PRN; Protocol PRN Reason: Per Pain Protocol Omeprazole (Prilosec) 20 mg PO ACB [facility] Last Admin: 08/09/20 09:24 Dose: 20 mg Documented by: Ondansetron HCl (Zofran) 4 mg IV Q4HP PRN; Protocol PRN Reason: Nausea And Vomiting Oxycodone/Acetaminophen (Percocet 5-325 Mg) 0 tab PO Q4HP PRN; Protocol PRN Reason: Per Pain Protocol Last Admin: 08/09/20 09:31 Dose: 2 tab Documented by: Artificial Tears ( Hypromellose) Eye Drops 1 dose OU BID [facility] Last Admin: 08/09/20 09:27 Dose: 1 dose Documented by: Polyethylene Glycol (Miralax) 17 gm PO DAILYP PRN PRN Reason: Constipation Promethazine HCl (Phenergan) 12.5 mg PO Q8HP PRN PRN Reason: Nausea And Vomiting Last Admin: 08/08/20 17:12 Dose: 12.5 mg Documented by: Pyridoxine HCl (Vitamin B-6) 100 mg PO DAILY@1800 [facility] Last Admin: 08/08/20 17:13 Dose: 100 mg Documented by: Lanny (Senokot) 2 tab PO [facility] Last Admin: 08/08/20 20:06 Dose: 2 tab Documented by: Sertraline HCl (Zoloft) 100 mg PO QDAY [facility] Last Admin: 08/09/20 09:22 Dose: 100 mg Documented by: Simethicone (Mylicon) 80 mg CHEWED [facility] Last Admin: 08/08/20 20:06 Dose: 80 mg Documented by: Sodium Biphosphate/Sodium Phosphate (Fleets Adult) 1 dose AL Q3-4DAYS PRN PRN Reason: Constipation Sodium Chloride (Saline Flush) 10 ml IV Q8 [facility] Last Admin: 08/09/20 05:44 Dose: 10 ml Documented by: Throat Lozenges (Cepacol) 1 lozenge PO PRN PRN PRN Reason: Sore Throat A/P Narrative A/P Narrative: 1. Seizure 2. Pseudotumor cerebri One episode of seizure Decreased Keppra to 250mg po bid and start her on morphine 2mg iv Q4hrs prn. MRI - pseudotumor cerebri. This is occasionally associated with seizures. Consider: Fluoroscopic guided lumbar puncture for CSF pressure measurements and concomitant CSF removal which may improve symptoms Discussed with the result and her seizure with neurology Lisa Lund who agreed with current keppra treatment. We can do LP in the hospital or can be done as an outpatient. Dr. Bobby will see her next week. Faxed facesheet to Dr. Bobby office. 2. S/p right total knee arthroplasty by Dr. Meade on 08/05 Post op management including pain control and DVT prophylaxis by Ortho team Spoke to orth Vanna Horn who cleared to discharge the pt. Asprin 81mg bid x 2wks for DVT prophylaxis and f/u at [facility] on 08/24/20 for re-check. 3. Hx of SLE Presumed stable 4. Hx of GI bleeding Presumed stable Omeprazole 5. Hx of conversion disorder Presumed stable 6. DM type 2 Diabetic diet Insulin sliding scale 7. HTN Continue home medication 8. ASHLEY or ASHLEY on CKD stage III Unknown chronicity Creatinine 1.1 03/20/2018 creatinine back to normal Avoid nephrotoxic meds Repeat renal function in morning 9. Weakness, both arms and right leg? Unknown chronicity MRI on 08/06 - no acute change CT of head today - negative for acute change Could be due to a chronic brain pathology? Will repeat MRI on Monday 10. Thrombocytopenia plt 100 today Repeat plt in am 11. Hyperphosphatemia Repeat phos in am 12. Anemia Hb 8.6 today Considering her condition, I would like to give her a 1 unit blood transfusion. Guaiac pending 13. DVT prophylaxis: SCD Heparin is on hold due to Hb dropping. 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
--- NOTE | 2020-08-09 14:04 | Internal Med Progress Note ---
SUBJECTIVE Subjective Patient information: Note initiated : 08/09/20 at 1:54 pm Service Date, if different from initiated Date: [] Patient: Yane Carranza 65 y/o F admitted on 08/07/20 for Right Total Knee Arthroplasty Jhony. Chief Complaint: [] Interval history: Patient is a 64-year-old female with a history of seizure disorder, SLE, GI bleeding, conversion disorder type 2 diabetes, and high blood pressure who underwent right knee replacement yesterday afternoon by Dr. Meade. Last night around midnight she had one episode of seizure, presenting with both arms myoclonic shaking and holding a pillow to her chest. I was called for this ev ent. I saw and examined patient immediately in patient room. As per nurse, during the event, pt did not lose consciousness, no urinary or bowel incontinence. But patient did complains of mild headache. Otherwise patient denied dizziness, nausea, vomiting, abdominal pain, or dysuria. No change in vision. cc:: CC: Edward eMade 08/07 Pt no longer has episode of seizure. She was sleepy yesterday and today she is more alert and awake. MRI of brain showed pseudotumor cerebri. This is occasionally associated with seizures. Consider: Fluoroscopic guided lumbar puncture for CSF pressure robyn urements and concomitant CSF removal which may improve symptoms Discussed with the result and her seizure with neurology Lisa Lund who agreed with current keppra treatment. We can do LP in the hospital or can be done as an outpatient. Could not reach her son. Considering there is no more seizure and sleepy/lethargic at times, pt also complains of leg pain, not controlled today, I will decrease keppra to 250mg bid and start her on morphine 2mg iv Q4hrs prn. I feel her sleepiness could result from keppra. Spoke to orth Vanna Horn who cleared to discharge the pt. Asprin 81mg b id x 2wks for DVT prophylaxis and f/u with orth in 2 wks. 08/08 Patient does not have any complaints. No longer has seizure. She is more alert and can answer questions. Both arm weakness symmetrical but right leg weaker than left leg. Donot know the weakness is acute or chronic. CT of head without contrast negative. NO MRI available at weekend at our hospital. Pt fully understood this. Repeat MRI on Monday. Hb dropped to 7.4, platelets 86, creatinine 1.0, hemoglobin A1c 5.3. Considering her condition, I would like to give her a 1 unit blood transfusion. Guaiac test was ordered. 08/09 No new complaints. No seizure. Hb went up to 8.6 and plt went to 100. No overnight acute events Awaiting for placement-[facility] 08/10 Constitutional Vitals: Vital Signs Temp Pulse Resp BP Pulse Ox 97.9 F 80 18 113/58 93 08/09/20 12:00 08/09/20 12:00 08/09/20 12:00 08/09/20 12:00 08/09/20 12:00 Period Temp Pulse Resp BP Sys/Anderson Pulse Ox Last 24 Hr 97.7 F-98.9 F 74-88 110-133/40-73 93-96 Intake and Output 08/08/20 08/09/20 08/09/20 21:59 05:59 13:59 Intake Total 775 486 3727 Output Total 900 1150 800 Balance -100 -500 840 Weight 91.399 kg Intake & Output: Intake & Output 08/08/20 08/09/20 08/09/20 21:59 05:59 13:59 Intake Total 673 384 1713 Output Total 900 1150 800 Balance -100 -500 840 Weight 91.399 kg Intake: Oral 591 922 1805 Blood Product 350 Output: Void Amount 900 1150 800 Other: Meal Lunch Percent of Meal Consumed 100% Urine Appearance Clear Clear Urine Color Bright Yellow Pale Dark Yellow # Voids 350 Exam: General: Alert, Awake, No acute Distress Eyes/N/T: EOMI, Head/Neck: neck supple, CV: RRR, No murmurs, Pulm: Diminished b/l, no wheezing/rhonchi/rales Abd: soft, nontender, +BS x4 Ext: no clubbing/cyanosis, RLE 3+ edema Neuro: Alert, no focal deficits, moves all extremities, Skin: warm/dry OBJ DATA Labs CBC & Chem 7: 08/09/20 05:18 08/08/20 06:03 Labs: Abnormal Lab Results 08/09/20 08/08/20 08/07/20 05:18 06:03 05:25 WBC 4.2 L RBC 2.81 L 2.48 L Hgb 8.6 L 7.4 L Hct 24.8 L 21.8 L Plt Count 100 L 86 L MPV 11.5 H 12.0 H Neut % (Auto) Lymph % (Auto) 14.6 L Lymph # (Auto) 0.68 L 0.76 L Glucose Total Protein Procalcitonin 0.11 H 08/07/20 08/07/20 05:25 05:25 WBC RBC 2.74 L Hgb 8.3 L Hct 25.2 L Plt Count 80 L MPV 11.9 H Neut % (Auto) 78.1 H Lymph % (Auto) 11.1 L Lymph # (Auto) 0.62 L Glucose 114 H Total Protein 5.7 L Procalcitonin Meds: Medications Acetaminophen (Tylenol) 500 mg PO HSP PRN; Protocol PRN Reason: Pain Albuterol Sulfate (Ventolin) 1 - 2 puff INH Q6HP PRN PRN Reason: Shortness Of Breath Last Admin: 08/08/20 10:44 Dose: 1 puff Documented by: Albuterol/Ipratropium (Duoneb) 3 ml NEB QIDP PRN PRN Reason: Shortness Of Breath Last Admin: 08/09/20 09:57 Dose: 3 ml Documented by: Aspirin (Aspirin) 81 mg PO BID [facility] Last Admin: 08/09/20 09:24 Dose: 81 mg Documented by: Atorvastatin Calcium (Lipitor) [address] [facility] Last Admin: 08/08/20 20:07 Dose: 40 mg Documented by: Bisacodyl (Dulcolax) [address] Q2-3DAYS PRN PRN Reason: Constipation Bupropion HCl (Wellbutrin Xl) 150 mg PO QAM [facility] Last Admin: 08/09/20 09:23 Dose: 150 mg Documented by: Dextrose (Dextrose 50%) 0 ml IV UD PRN PRN Reason: Hypoglycemia Diagnostic Test (Pha) (Accu-Chek) 1 each FS ACHS [facility] Last Admin: 08/09/20 11:57 Dose: 1 each Documented by: Docusate Sodium (Colace) 100 mg PO BID [facility] Last Admin: 08/09/20 09:24 Dose: 100 mg Documented by: Ferrous Gluconate (Fergon) 324 mg PO [facility] Last Admin: 08/08/20 20:07 Dose: 324 mg Documented by: Fluticasone Propionate (Flovent Hfa 44mcg) 1 puff INH BID [facility] Last Admin: 08/09/20 10:35 Dose: 1 puff Documented by: Gabapentin (Neurontin) 600 mg PO TID [facility] Last Admin: 08/09/20 09:22 Dose: 600 mg Documented by: Glucose (Insta-Glucose) 15 gm PO PRN PRN PRN Reason: Hypoglycemia Glucose (Insta-Glucose) 15 gm PO PRN PRN PRN Reason: Hypoglycemia Guaifenesin (Robitussin Dm) 5 ml PO HSP PRN PRN Reason: Cough Insulin Human Lispro (Humalog) 0 unit SQ ACHS [facility]; Protocol Last Admin: 08/09/20 11:59 Dose: Not Given Documented by: Lactobacillus Rhamnosus (Culturelle) 1 cap PO DAILY@1200 [facility] Last Admin: 08/09/20 11:56 Dose: 1 cap Documented by: Lactulose (Cephulac) 10 gm PO DAILYP PRN PRN Reason: Constipation Lactulose (Cephulac) 10 gm PO DAILYP PRN PRN Reason: Constipation Levetiracetam (Keppra) 250 mg PO BID [facility] Last Admin: 08/09/20 09:22 Dose: 250 mg Documented by: Levothyroxine Sodium (Synthroid) 75 mcg PO ACB [facility] Last Admin: 08/09/20 09:24 Dose: 75 mcg Documented by: Lorazepam (Ativan) 0.5 mg IV Q2HP PRN PRN Reason: Seizure Activity Lorazepam (Ativan) 0.5 mg PO Q8HP PRN PRN Reason: Anxiety Last Admin: 08/08/20 23:55 Dose: 0.5 mg Documented by: Magnesium Hydroxide (Milk Of Magnesia) 30 ml PO BIDP PRN PRN Reason: Constipation Last Admin: 08/09/20 03:04 Dose: 30 ml Documented by: Magnesium Oxide (Magnesium Oxide) 400 mg PO DAILY@1800 [facility] Last Admin: 08/08/20 17:13 Dose: 400 mg Documented by: Melatonin (Melatonin 3mg Tablet) [address] [facility] Last Admin: 08/08/20 20:07 Dose: 3 mg Documented by: Memantine (Namenda) 10 mg PO DAILY [facility] Last Admin: 08/09/20 09:24 Dose: 10 mg Documented by: Montelukast Sodium (Singular) 10 mg PO HS [facility] Last Admin: 08/08/20 20:07 Dose: 10 mg Documented by: Morphine Sulfate (Morphine) 2 mg IV Q4HP PRN; Protocol PRN Reason: Per Pain Protocol Omeprazole (Prilosec) 20 mg PO ACB [facility] Last Admin: 08/09/20 09:24 Dose: 20 mg Documented by: Ondansetron HCl (Zofran) 4 mg IV Q4HP PRN; Protocol PRN Reason: Nausea And Vomiting Oxycodone/Acetaminophen (Percocet 5-325 Mg) 0 tab PO Q4HP PRN; Protocol PRN Reason: Per Pain Protocol Last Admin: 08/09/20 09:31 Dose: 2 tab Documented by: Artificial Tears ( Hypromellose) Eye Drops 1 dose OU BID [facility] Last Admin: 08/09/20 09:27 Dose: 1 dose Documented by: Polyethylene Glycol (Miralax) 17 gm PO DAILYP PRN PRN Reason: Constipation Promethazine HCl (Phenergan) 12.5 mg PO Q8HP PRN PRN Reason: Nausea And Vomiting Last Admin: 08/08/20 17:12 Dose: 12.5 mg Documented by: Pyridoxine HCl (Vitamin B-6) 100 mg PO DAILY@1800 [facility] Last Admin: 08/08/20 17:13 Dose: 100 mg Documented by: Lanny (Senokot) 2 tab [address] [facility] Last Admin: 08/08/20 20:06 Dose: 2 tab Documented by: Sertraline HCl (Zoloft) 100 mg PO QDAY [facility] Last Admin: 08/09/20 09:22 Dose: 100 mg Documented by: Simethicone (Mylicon) 80 mg CHEWED [facility] Last Admin: 08/08/20 20:06 Dose: 80 mg Documented by: Sodium Biphosphate/Sodium Phosphate (Fleets Adult) [address] Q3-4DAYS PRN PRN Reason: Constipation Sodium Chloride (Saline Flush) 10 ml IV Q8 [facility] Last Admin: 08/09/20 05:44 Dose: 10 ml Documented by: Throat Lozenges (Cepacol) 1 lozenge PO PRN PRN PRN Reason: Sore Throat A/P Narrative A/P Narrative: A: *Seizure: *Recent MRI findings compatible iwth Pseudotumor cerebri -One episode of seizure -Discussed with Lisa Lund who agreed with current keppra treatment. She will do LP in office. -Dr. Bobby will see her next week. *S/p right total knee arthroplasty by Dr. Meade on 08/05 *Hx of SLE *Hx of GI bleeding: omeprazole *Hx of conversion disorder *DM type 2: 7. HTN *ASHLEY on CKD stage III *Thrombocytopenia, chronic: stable *Anemia, chronic: *Depression: P: -cont keppra -Discussed with Lisa Lund who agreed with current keppra treatment. She will do LP in office. -Dr. Bobby will see her next week. -stop bupropion d/t sz -Diabetic diet, Insulin sliding scale - -pt/ot -Asprin 81mg bid x 2wks for DVT prophylaxis and f/u at [facility] on 08/24/20 for re- check. 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
[2020-08-09] MEDS: MAGNESIUM OXIDE 400 MG TABLET PO SCH (16:54)
[2020-08-09] MEDS: PYRIDOXINE 100 MG TABLET PO SCH (16:54)
[2020-08-09] MEDS: LORazepam 0.5 MG TABLET PO PRN (18:49)
[2020-08-09] MEDS: SIMETHICONE 80 MG TAB.CHEW CHEWED SCH (20:18)
[2020-08-09] MEDS: FERROUS GLUCONATE 324 MG TABLET PO SCH (20:19)
[2020-08-09] MEDS: SENNOSIDES 1 TABLET PO SCH (20:19)
[2020-08-09] MEDS: ATORVASTATIN 40 MG TABLET PO SCH (20:19)
[2020-08-09] MEDS: MELATONIN 3 MG TABLET PO SCH (20:19)
[2020-08-09] MEDS: MONTELUKAST 10 MG TABLET PO SCH (20:19)
[2020-08-10] MEDS: oxyCODONE/APAP 5/325MG TABLET PO PRN ×3 (03:18→12:59)
[2020-08-10] MEDS: 0.9 % SODIUM CHLORIDE 10 ML SYRINGE IV SCH (04:27)
[2020-08-10] MEDS: LORazepam 0.5 MG TABLET PO PRN ×2 (04:28→12:59)
[2020-08-10] MEDS: INSULIN LISPRO 1 UNIT/0.01 ML UNIT SQ SCH ×2 (07:45→12:07)
[2020-08-10] MEDS: LEVOTHYROXINE 75 MCG TABLET PO SCH (08:02)
[2020-08-10] MEDS: PROMETHAZINE 25 MG TABLET PO PRN (08:02)
--- NOTE | 2020-08-10 08:55 | Internal Med Progress Note ---
SUBJECTIVE Subjective Patient information: Note initiated : 08/10/20 at 8:54 am Service Date, if different from initiated Date: [] Patient: Yane Carranza 65 y/o F admitted on 08/07/20 for Right Total Knee Arthroplasty Jhony. Chief Complaint: [] Interval history: Patient is a 64-year-old female with a history of seizure disorder, SLE, GI bleeding, conversion disorder type 2 diabetes, and high blood pressure who underwent right knee replacement yesterday afternoon by Dr. Meade. Last night around midnight she had one episode of seizure, presenting with both arms myoclonic shaking and holding a pillow to her chest. I was called for this ev ent. I saw and examined patient immediately in patient room. As per nurse, during the event, pt did not lose consciousness, no urinary or bowel incontinence. But patient did complains of mild headache. Otherwise patient denied dizziness, nausea, vomiting, abdominal pain, or dysuria. No change in vision. cc:: CC: Edward Meade 08/07 Pt no longer has episode of seizure. She was sleepy yesterday and today she is more alert and awake. MRI of brain showed pseudotumor cerebri. This is occasionally associated with seizures. Consider: Fluoroscopic guided lumbar puncture for CSF pressure robyn urements and concomitant CSF removal which may improve symptoms Discussed with the result and her seizure with neurology Lisa Lund who agreed with current keppra treatment. We can do LP in the hospital or can be done as an outpatient. Could not reach her son. Considering there is no more seizure and sleepy/lethargic at times, pt also complains of leg pain, not controlled today, I will decrease keppra to 250mg bid and start her on morphine 2mg iv Q4hrs prn. I feel her sleepiness could result from keppra. Spoke to orth Vanna Horn who cleared to discharge the pt. Asprin 81mg b id x 2wks for DVT prophylaxis and f/u with orth in 2 wks. 08/08 Patient does not have any complaints. No longer has seizure. She is more alert and can answer questions. Both arm weakness symmetrical but right leg weaker than left leg. Donot know the weakness is acute or chronic. CT of head without contrast negative. NO MRI available at weekend at our hospital. Pt fully understood this. Repeat MRI on Monday. Hb dropped to 7.4, platelets 86, creatinine 1.0, hemoglobin A1c 5.3. Considering her condition, I would like to give her a 1 unit blood transfusion. Guaiac test was ordered. 08/09 No new complaints. No seizure. Hb went up to 8.6 and plt went to 100. No overnight acute events Awaiting for placement-SNF 08/10 Doing well. Feeling better. No new pains or complaints. No seizure. Review of Systems: denies headache/fever/chills/nausea/vomiting/chest or abdominal pain/cough/dyspnea/diarrhea. Otherwise see above. Constitutional Vitals: Vital Signs Temp Pulse Resp BP Pulse Ox 98.9 F 89 16 114/59 94 08/10/20 06:32 08/10/20 03:20 08/10/20 06:32 08/10/20 06:32 08/10/20 06:32 Period Temp Pulse Resp BP Sys/Anderson Pulse Ox Last 24 Hr 97.1 F-98.9 F 77-89 109-134/58-77 93-98 Intake and Output 08/09/20 08/10/20 08/10/20 21:59 05:59 13:59 Intake Total 780 500 Output Total 950 700 225 Balance -170 -200 -225 Weight 92.249 kg Intake & Output: Intake & Output 08/09/20 08/10/20 08/10/20 21:59 05:59 13:59 Intake Total 780 500 Output Total 950 700 225 Balance -170 -200 -225 Weight 92.249 kg Intake: Oral 780 500 Output: Void Amount 950 700 Urine/Stool Mix 225 Other: Meal Dinner Breakfast Percent of Meal Consumed 50% 100% Feeding Ability Independent Urine Appearance Clear Clear Urine Color Pale Pale Stool Size Large Stool Color Brown Stool Consistency Soft # Voids 1 # Bowel Movements 1 Exam: General: Alert, Awake, No acute Distress Eyes/N/T: EOMI, Head/Neck: neck supple, CV: RRR, No murmurs, Pulm: Diminished b/l, no wheezing/rhonchi/rales Abd: soft, nontender, +BS x4 Ext: no clubbing/cyanosis, RLE edema Neuro: Alert, no focal deficits, moves all extremities, Skin: warm/dry OBJ DATA Labs CBC & Chem 7: 08/09/20 05:18 08/08/20 06:03 Labs: Abnormal Lab Results 08/09/20 08/08/20 08/07/20 05:18 06:03 05:25 WBC 4.2 L RBC 2.81 L 2.48 L Hgb 8.6 L 7.4 L Hct 24.8 L 21.8 L Plt Count 100 L 86 L MPV 11.5 H 12.0 H Lymph % (Auto) 14.6 L Lymph # (Auto) 0.68 L 0.76 L Procalcitonin 0.11 H Meds: Medications Acetaminophen (Tylenol) 500 mg PO HSP PRN; Protocol PRN Reason: Pain Albuterol Sulfate (Ventolin) 1 - 2 puff INH Q6HP PRN PRN Reason: Shortness Of Breath Last Admin: 08/08/20 10:44 Dose: 1 puff Documented by: Albuterol/Ipratropium (Duoneb) 3 ml NEB QIDP PRN PRN Reason: Shortness Of Breath Last Admin: 08/09/20 09:57 Dose: 3 ml Documented by: Aspirin (Aspirin) 81 mg PO BID [facility] Last Admin: 08/09/20 20:20 Dose: 81 mg Documented by: Atorvastatin Calcium (Lipitor) 40 mg PO HS [facility] Last Admin: 08/09/20 20:19 Dose: 40 mg Documented by: Bisacodyl (Dulcolax) 10 mg WI Q2-3DAYS PRN PRN Reason: Constipation Last Admin: 08/10/20 03:19 Dose: 10 mg Documented by: Dextrose (Dextrose 50%) 0 ml IV UD PRN PRN Reason: Hypoglycemia Diagnostic Test (Pha) (Accu-Chek) 1 each FS ACHS [facility] Last Admin: 08/10/20 07:43 Dose: 1 each Documented by: Docusate Sodium (Colace) 100 mg PO BID [facility] Last Admin: 08/09/20 20:20 Dose: 100 mg Documented by: Ferrous Gluconate (Fergon) 324 mg PO HS [facility] Last Admin: 08/09/20 20:19 Dose: 324 mg Documented by: Fluticasone Propionate (Flovent Hfa 44mcg) 1 puff INH BID [facility] Last Admin: 08/09/20 20:21 Dose: 1 puff Documented by: Gabapentin (Neurontin) 600 mg PO TID [facility] Last Admin: 08/09/20 20:19 Dose: 600 mg Documented by: Glucose (Insta-Glucose) 15 gm PO PRN PRN PRN Reason: Hypoglycemia Glucose (Insta-Glucose) 15 gm PO PRN PRN PRN Reason: Hypoglycemia Guaifenesin (Robitussin Dm) 5 ml PO HSP PRN PRN Reason: Cough Insulin Human Lispro (Humalog) 0 unit SQ ACHS [facility]; Protocol Last Admin: 08/10/20 07:45 Dose: Not Given Documented by: Lactobacillus Rhamnosus (Culturelle) 1 cap PO DAILY@1200 [facility] Last Admin: 08/09/20 11:56 Dose: 1 cap Documented by: Lactulose (Cephulac) 10 gm PO DAILYP PRN PRN Reason: Constipation Levetiracetam (Keppra) 500 mg PO BID [facility] Last Admin: 08/09/20 20:19 Dose: 500 mg Documented by: Levothyroxine Sodium (Synthroid) 75 mcg PO ACB [facility] Last Admin: 08/10/20 08:02 Dose: 75 mcg Documented by: Lorazepam (Ativan) 0.5 mg IV Q2HP PRN PRN Reason: Seizure Activity Last Admin: 08/09/20 14:19 Dose: 0.5 mg Documented by: Lorazepam (Ativan) 0.5 mg PO Q8HP PRN PRN Reason: Anxiety Last Admin: 08/10/20 04:28 Dose: 0.5 mg Documented by: Magnesium Hydroxide (Milk Of Magnesia) 30 ml PO BIDP PRN PRN Reason: Constipation Last Admin: 08/09/20 03:04 Dose: 30 ml Documented by: Magnesium Oxide (Magnesium Oxide) 400 mg PO DAILY@1800 [facility] Last Admin: 08/09/20 16:54 Dose: 400 mg Documented by: Melatonin (Melatonin 3mg Tablet) 3 mg PO [facility] Last Admin: 08/09/20 20:19 Dose: 3 mg Documented by: Memantine (Namenda) 10 mg PO DAILY [facility] Last Admin: 08/09/20 09:24 Dose: 10 mg Documented by: Montelukast Sodium (Singular) 10 mg PO HS [facility] Last Admin: 08/09/20 20:19 Dose: 10 mg Documented by: Morphine Sulfate (Morphine) 2 mg IV Q4HP PRN; Protocol PRN Reason: Per Pain Protocol Omeprazole (Prilosec) 20 mg PO ACB [facility] Last Admin: 08/09/20 09:24 Dose: 20 mg Documented by: Ondansetron HCl (Zofran) 4 mg IV Q4HP PRN; Protocol PRN Reason: Nausea And Vomiting Oxycodone/Acetaminophen (Percocet 5-325 Mg) 0 tab PO Q4HP PRN; Protocol PRN Reason: Per Pain Protocol Last Admin: 08/10/20 07:59 Dose: 2 tab Documented by: Artificial Tears ( Hypromellose) Eye Drops 1 dose OU BID [facility] Last Admin: 08/09/20 20:21 Dose: 1 dose Documented by: Polyethylene Glycol (Miralax) 17 gm PO DAILYP PRN PRN Reason: Constipation Last Admin: 08/09/20 18:49 Dose: 17 gm Documented by: Promethazine HCl (Phenergan) 12.5 mg PO Q8HP PRN PRN Reason: Nausea And Vomiting Last Admin: 08/10/20 08:02 Dose: 12.5 mg Documented by: Pyridoxine HCl (Vitamin B-6) 100 mg PO DAILY@1800 [facility] Last Admin: 08/09/20 16:54 Dose: 100 mg Documented by: Senna (Senokot) 2 tab PO [facility] Last Admin: 08/09/20 20:19 Dose: 2 tab Documented by: Sertraline HCl (Zoloft) 100 mg PO QDAY [facility] Last Admin: 08/09/20 09:22 Dose: 100 mg Documented by: Simethicone (Mylicon) 80 mg CHEWED [facility] Last Admin: 08/09/20 20:18 Dose: 80 mg Documented by: Sodium Biphosphate/Sodium Phosphate (Fleets Adult) 1 dose WI Q3-4DAYS PRN PRN Reason: Constipation Sodium Chloride (Saline Flush) 10 ml IV Q8 [facility] Last Admin: 08/10/20 04:27 Dose: 10 ml Documented by: Throat Lozenges (Cepacol) 1 lozenge PO PRN PRN PRN Reason: Sore Throat A/P Narrative A/P Narrative: A: *Seizure: *Recent MRI findings compatible iwth Pseudotumor cerebri -One episode of seizure -Discussed with Lisa Lund who agreed with current gui treatment. She will do LP in office. -Dr. Bobby will see her next week. *S/p right total knee arthroplasty by Dr. Meade on 08/05 *Hx of SLE *Hx of GI bleeding: omeprazole *Hx of conversion disorder *DM type 2: 7. HTN *ASHLEY on CKD stage III *Thrombocytopenia, chronic: stable *Anemia, chronic: *Depression: P: -cont keppra -Discussed with Dr. Bobby who agreed with current keppra treatment. She will do LP in office. -Dr. Bobby will see her next week. -stop bupropion d/t sz -Diabetic diet, Insulin sliding scale - -pt/ot -Asprin 81mg bid x 2wks for DVT prophylaxis and f/u at [facility] on 08/24/20 for re- check. 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
[2020-08-10] MEDS: ASPIRIN 81 MG TAB.CHEW PO SCH (09:17)
[2020-08-10] MEDS: GABAPENTIN 300 MG CAPSULE PO SCH (09:18)
[2020-08-10] MEDS: DOCUSATE SODIUM 100 MG CAPSULE PO SCH (09:20)
[2020-08-10] MEDS: levETIRAcetam 500 MG TABLET PO SCH (09:21)
[2020-08-10] MEDS: SERTRALINE 100 MG TABLET PO SCH (09:21)
[2020-08-10] MEDS: MEMANTINE 10 MG TABLET PO SCH (09:21)
[2020-08-10] MEDS: OMEPRAZOLE 20 MG CAPSULE PO SCH (09:21)
[2020-08-10] MEDS: FLUTICASONE HFA 44MCG INHALER INH SCH (09:22)
[2020-08-10] MEDS: [UNRECOGNIZED DRUG - OTHER] OU SCH (09:23)
[2020-08-10] MEDS: HYPROMELLOSE OU SCH (09:23)
--- NOTE | 2020-08-10 09:33 | Discharge Summary ---
Discharge Provider Provider Patient information: Note initiated : 08/10/20 at 9:26 am Service Date, if different from initiated Date: [] Patient: Yane Carranza 65 y/o F admitted on 08/07/20 for Right Total Knee Arthroplasty Jhony. Chief Complaint: [] Date of admission: 08/07/20 10:30 Discharge date: 08/10/20 Primary care physician: Shelby Benson Consults: 08/06/20 00:05 Consult to Physician [CONS] Routine Comment: Consulting Provider: Chelsey Monsalve Reason For Exam: Physician to Consult COURSE Hospital Course Hospital course: admitted after total knee. Had possible seizure, hospitalist consulted. He felt snf placement best so patient stayed over weekend and d/c'd on Monday. Discharge diagnosis: s/p total knee arthroplasty Procedures: Right total knee arthroplasty Time Spent with Patient Time attestation: Total time spent providing and/or coordinating discharge services: Physical Examination Exam Weight bearing status: as tolerated DC Instructions-General Patient Instructions Dressing Care: Aquacel Ag - leave on for 5 days Discharge Plan Patient/Caregiver Discharge Instructions Activity: as per physical therapy and increase activity as tolerated Diet: Regular Diet Instructions: Knee Arthroscopy (GEN) Activity Restrictions/Additional Instructions: Discharge Instructions: Do the exercises at home that physical therapy gave you. Weight bearing as tolerated. Wear comfortable clothing for physical therapy. You will have [facility] for physical therapy [phone]. You have the silver dressing, leave in place for 7-14 days then remove. You have the ZipLine closure, this needs to stay in place until seen in the physician's office. You may shower with dressing on, pat dry after shower. You may start showering on post op day #2. To avoid constipation while taking any narcotic pain medication, take an over the counter stool softener/laxative. Use ice packs as directed. Ice and elevation will help with pain and swelling. If you have any questions or concerns call your orthopedic surgeon before going to the emergency room. [facility] has a clerical receptionist physician 24 hours per day/7 days per week and can be reached at [phone]. Call for fevers above 100.5 or pain not controlled by medication. Your prescriptions are with your discharge information. Some medications were electronically transmitted to your pharmacy of choice. Take Aspirin as prescribed to prevent blood clots (see medication list). This discharge packet is provided to you to help keep you informed about your care. We want to ensure you get everything you need when you go home. You will also be receiving a call from us in a few days to follow up with you and see how you are doing since your discharge. This gives us a chance to listen to any concerns you maybe experiencing since you were discharged or any additional needs you may have, as well as providing us feedback on your care experience. We strive to always provide excellent care and thank you for your feedback and for choosing [facility]. Prescriptions: New levetiracetam 500 mg Tablet 500 mg PO BID Qty: 40 RF: 0 Continued atorvastatin 10 mg tablet 10 mg PO HS RF: 0 lorazepam 1 mg tablet 1 mg PO DAILYP PRN (Reason: Anxiety) RF: 0 ferrous gluconate 324 mg (37.5 mg iron) tablet 324 mg PO HS RF: 0 promethazine 12.5 mg tablet 12.5 mg PO Q8HP PRN (Reason: Nausea And Vomiting) RF: 0 ipratropium-albuterol 0.5 mg-3 mg(2.5 mg base)/3 mL Solution For Nebulization 3 ml INHALATION QID PRN (Reason: Shortness Of Breath) RF: 0 sertraline 100 mg Tablet 100 mg PO QDAY RF: 0 spironolactone 25 mg Tablet 25 mg PO QDAY RF: 0 levothyroxine 75 mcg Tablet 75 mcg PO ACB RF: 0 lisinopril 10 mg Tablet 10 mg PO HS RF: 0 Flovent HFA 44 mcg/actuation Hfa Aerosol Inhaler 1 puff INHALATION QID RF: 0 gabapentin 300 mg Capsule 600 mg PO TID RF: 0 omeprazole 20 mg Capsule,Delayed Release(Dr/Ec) 20 mg PO ACB RF: 0 montelukast 10 mg Tablet 10 mg PO HS RF: 0 hydroxyzine HCl 25 mg Tablet 25 mg PO TID RF: 0 zolpidem 5 mg Tablet 5 mg PO HSP PRN (Reason: Insomnia) RF: 0 albuterol sulfate [Ventolin HFA] 90 mcg/actuation Hfa Aerosol Inhaler 1 - 2 puff INHALATION Q6HP PRN (Reason: Shortness Of Breath) RF: 0 fluticasone propionate [Flonase Allergy Relief] 50 mcg/actuation Spr ay,Suspension 1 spray INTRANASAL DAILYP PRN (Reason: Allergy Symptoms) RF: 0 memantine 10 mg Tablet 10 mg PO DAILY RF: 0 acetaminophen 500 mg Tablet 500 mg PO HSP PRN (Reason: Pain) RF: 0 Robitussin Cough-Chest Juancho DM 5-100 mg/5 mL Liquid 5 ml PO HSP PRN (Reason: Cough) RF: 0 sennosides [senna] 8.6 mg Tablet 8.6 mg PO HS RF: 0 simethicone 125 mg Capsule 125 mg PO HS RF: 0 selenium 200 mcg Tablet 200 mcg PO DAILY@1200 RF: 0 ascorbic acid (vitamin C) [Vitamin C] 500 mg Tablet 500 mg PO DAILY@1800 RF: 0 magnesium 250 mg Tablet 250 mg PO DAILY@1800 RF: 0 artificial tears(hypromellose) 0.5 % Drops 1 drp ophthalmic (eye) BID RF: 0 melatonin 5 mg Tablet 5 mg PO HS RF: 0 zinc-vit C-pyridoxine (vit B6) 12-60-0.5 mg Lozenge 1 jak PO DAILY@1200 RF: 0 Digestive Health Probiotic 10 billion cell Capsule 1 cap PO DAILY@1200 RF: 0 sayda root-pyridoxine HCl(B6) 325-25 mg Capsule 1 cap PO DAILY@1800 RF: 0 Discontinued bupropion HCl [Wellbutrin XL] 150 mg Tablet Extended Release 24 Hr 150 mg PO QAM RF: 0 Follow Up Plan Follow up with: Edward Meade MD [Physician] - 08/24/20 10:00 am Lisa Bobby MD [Physician] - Shelby Benson MD [Primary Care Provider] - 08/14/20 11:40 am (Please arrive 15 minutes early.) Patient Disposition: Xfer SNF I certify that the patient requires SNF services: Yes Discharge Orders: Discharge Order (Routine); Ordered 08/10/20 Ordered By: Edward Meade Pending Pending Pending: Resuscitation Status Full Code Diet Consistent Carbohydrate Diet Start MonAug 06 42 Albuterol Sulfate (Ventolin) 1 - 2 puff INH Q6HP PRN PRN Reason: Shortness Of Breath Last Admin: 08/08/20 10:44 Dose: 1 puff Documented by: ALFONZO Albuterol/Ipratropium (Duoneb) 3 ml NEB QIDP PRN PRN Reason: Shortness Of Breath Last Admin: 08/09/20 09:57 Dose: 3 ml Documented by: Admin: 08/08/20 05:42 Dose: 3 ml Documented by: Admin: 08/07/20 15:40 Dose: 3 ml Documented by: JILL Aspirin (Aspirin) 81 mg PO BID [facility] Last Admin: 08/10/20 09:17 Dose: 81 mg Documented by: Cosigned by: Admin: 08/09/20 20:20 Dose: 81 mg Documented by: Admin: 08/09/20 09:24 Dose: 81 mg Documented by: Admin: 08/08/20 20:07 Dose: 81 mg Documented by: Admin: 08/08/20 10:33 Dose: 81 mg Documented by: Admin: 08/07/20 20:54 Dose: 81 mg Documented by: PINKY Atorvastatin Calcium (Lipitor) 40 mg PO HS [facility] Last Admin: 08/09/20 20:19 Dose: 40 mg Documented by: Admin: 08/08/20 20:07 Dose: 40 mg Documented by: PINKY Bisacodyl (Dulcolax) 10 mg KS Q2-3DAYS PRN PRN Reason: Constipation Last Admin: 08/10/20 03:19 Dose: 10 mg Documented by: PINKY Diagnostic Test (Pha) (Accu-Chek) 1 each FS ACHS [facility] Last Admin: 08/10/20 07:43 Dose: 1 each Documented by: Admin: 08/09/20 20:17 Dose: 1 each Documented by: Admin: 08/09/20 16:50 Dose: 1 each Documented by: Admin: 08/09/20 11:57 Dose: 1 each Documented by: Admin: 08/09/20 09:12 Dose: 1 each Documented by: Admin: 08/08/20 20:04 Dose: 1 each Documented by: Admin: 08/08/20 17:07 Dose: 1 each Documented by: Admin: 08/08/20 11:38 Dose: 1 each Documented by: Admin: 08/08/20 07:40 Dose: 1 each Documented by: Admin: 08/07/20 20:51 Dose: 1 each Documented by: Admin: 08/07/20 17:17 Dose: 1 each Documented by: Admin: 08/07/20 11:19 Dose: Not Given Documented by: LAZARO Docusate Sodium (Colace) 100 mg PO BID [facility] Last Admin: 08/10/20 09:20 Dose: 100 mg Documented by: Cosigned by: Admin: 08/09/20 20:20 Dose: 100 mg Documented by: Admin: 08/09/20 09:24 Dose: 100 mg Documented by: Admin: 08/08/20 20:07 Dose: 100 mg Documented by: Admin: 08/08/20 10:37 Dose: 100 mg Documented by: Admin: 08/07/20 20:52 Dose: 100 mg Documented by: PINKY Ferrous Gluconate (Fergon) 324 mg PO HS [facility] Last Admin: 08/09/20 20:19 Dose: 324 mg Documented by: Admin: 08/08/20 20:07 Dose: 324 mg Documented by: Admin: 08/07/20 20:53 Dose: 324 mg Documented by: PINKY Fluticasone Propionate (Flovent Hfa 44mcg) 1 puff INH BID [facility] Last Admin: 08/10/20 09:22 Dose: 1 puff Documented by: Cosigned by: Admin: 08/09/20 20:21 Dose: 1 puff Documented by: Admin: 08/09/20 10:35 Dose: 1 puff Documented by: Admin: 08/08/20 20:10 Dose: 1 puff Documented by: Admin: 08/08/20 15:27 Dose: Not Given Documented by: Admin: 08/07/20 21:02 Dose: 1 puff Documented by: PINKY Gabapentin (Neurontin) 600 mg PO TID [facility] Last Admin: 08/10/20 09:18 Dose: 600 mg Documented by: Cosigned by: Admin: 08/09/20 20:19 Dose: 600 mg Documented by: Admin: 08/09/20 14:26 Dose: 600 mg Documented by: Admin: 08/09/20 09:22 Dose: 600 mg Documented by: Admin: 08/08/20 20:06 Dose: 600 mg Documented by: Admin: 08/08/20 15:30 Dose: 600 mg Documented by: Admin: 08/08/20 10:33 Dose: 600 mg Documented by: Admin: 08/07/20 20:52 Dose: 600 mg Documented by: Admin: 08/07/20 15:31 Dose: 600 mg Documented by: JILL Insulin Human Lispro (Humalog) 0 unit SQ ACHS [facility]; Protocol Last Admin: 08/10/20 07:45 Dose: Not Given Documented by: Admin: 08/09/20 20:21 Dose: Not Given Documented by: Admin: 08/09/20 16:51 Dose: Not Given Documented by: Admin: 08/09/20 11:59 Dose: Not Given Documented by: Admin: 08/09/20 09:14 Dose: Not Given Documented by: Admin: 08/08/20 20:04 Dose: Not Given Documented by: Admin: 08/08/20 17:08 Dose: Not Given Documented by: Admin: 08/08/20 11:42 Dose: Not Given Documented by: Admin: 08/08/20 07:43 Dose: Not Given Documented by: Admin: 08/07/20 20:51 Dose: Not Given Documented by: Admin: 08/07/20 17:30 Dose: 1 unit Documented by: Admin: 08/07/20 11:19 Dose: Not Given Documented by: LAZARO Lactobacillus Rhamnosus (Culturelle) 1 cap PO DAILY@1200 [facility] Last Admin: 08/09/20 11:56 Dose: 1 cap Documented by: Admin: 08/08/20 11:37 Dose: 1 cap Documented by: Admin: 08/07/20 11:20 Dose: 1 cap Documented by: LAZARO Levetiracetam (Keppra) 500 mg PO BID [facility] Last Admin: 08/10/20 09:21 Dose: 500 mg Documented by: Cosigned by: Admin: 08/09/20 20:19 Dose: 500 mg Documented by: PINKY Levothyroxine Sodium (Synthroid) 75 mcg PO ACB [facility] Last Admin: 08/10/20 08:02 Dose: 75 mcg Documented by: Admin: 08/09/20 09:24 Dose: 75 mcg Documented by: Admin: 08/08/20 07:44 Dose: 75 mcg Documented by: ALFONZO Lorazepam (Ativan) 0.5 mg IV Q2HP PRN PRN Reason: Seizure Activity Last Admin: 08/09/20 14:19 Dose: 0.5 mg Documented by: ALFONZO Lorazepam (Ativan) 0.5 mg PO Q8HP PRN PRN Reason: Anxiety Last Admin: 08/10/20 04:28 Dose: 0.5 mg Documented by: Admin: 08/09/20 18:49 Dose: 0.5 mg Documented by: Admin: 08/08/20 23:55 Dose: 0.5 mg Documented by: Admin: 08/08/20 15:31 Dose: 0.5 mg Documented by: ALFONZO Magnesium Hydroxide (Milk Of Magnesia) 30 ml PO BIDP PRN PRN Reason: Constipation Last Admin: 08/09/20 03:04 Dose: 30 ml Documented by: PINKY Magnesium Oxide (Magnesium Oxide) 400 mg PO DAILY@1800 [facility] Last Admin: 08/09/20 16:54 Dose: 400 mg Documented by: Admin: 08/08/20 17:13 Dose: 400 mg Documented by: Admin: 08/07/20 17:30 Dose: 400 mg Documented by: JILL Melatonin (Melatonin 3mg Tablet) 3 mg PO HS [facility] Last Admin: 08/09/20 20:19 Dose: 3 mg Documented by: Admin: 11/14/20 20:07 Dose: 3 mg Documented by: Admin: 08/07/20 20:54 Dose: 3 mg Documented by: PINKY Memantine (Namenda) 10 mg PO DAILY [facility] Last Admin: 08/10/20 09:21 Dose: 10 mg Documented by: Cosigned by: Admin: 08/09/20 09:24 Dose: 10 mg Documented by: Admin: 08/08/20 10:33 Dose: 10 mg Documented by: ALFONZO Montelukast Sodium (Singular) 10 mg PO HS [facility] Last Admin: 08/09/20 20:19 Dose: 10 mg Documented by: Admin: 08/08/20 20:07 Dose: 10 mg Documented by: Admin: 08/07/20 20:53 Dose: 10 mg Documented by: PINKY Omeprazole (Prilosec) 20 mg PO ACB [facility] Last Admin: 08/10/20 09:21 Dose: 20 mg Documented by: Cosigned by: Admin: 08/09/20 09:24 Dose: 20 mg Documented by: Admin: 08/08/20 07:44 Dose: 20 mg Documented by: ALFONZO Oxycodone/Acetaminophen (Percocet 5-325 Mg) 0 tab PO Q4HP PRN; Protocol PRN Reason: Per Pain Protocol Last Admin: 08/10/20 07:59 Dose: 2 tab Documented by: Admin: 08/10/20 03:18 Dose: 2 tab Documented by: Admin: 08/09/20 20:20 Dose: 2 tab Documented by: Admin: 08/09/20 16:12 Dose: 2 tab Documented by: Admin: 08/09/20 09:31 Dose: 2 tab Documented by: Admin: 08/09/20 02:41 Dose: 2 tab Documented by: Admin: 08/08/20 21:03 Dose: 2 tab Documented by: Admin: 08/08/20 17:14 Dose: 1 tab Documented by: Admin: 08/08/20 15:32 Dose: 1 tab Documented by: Admin: 08/08/20 09:47 Dose: 2 tab Documented by: Admin: 08/08/20 04:48 Dose: 2 tab Documented by: Admin: 08/07/20 22:48 Dose: 2 tab Documented by: Admin: 08/07/20 18:48 Dose: 2 tab Documented by: Admin: 08/07/20 13:21 Dose: 2 tab Documented by: JILL Artificial Tears ( Hypromellose) Eye Drops 1 dose OU BID [facility] Last Admin: 08/10/20 09:23 Dose: 1 dose Documented by: Cosigned by: Admin: 08/09/20 20:21 Dose: 1 dose Documented by: Admin: 08/09/20 09:27 Dose: 1 dose Documented by: Admin: 08/08/20 20:10 Dose: 1 dose Documented by: Admin: 08/08/20 10:45 Dose: 1 dose Documented by: Admin: 08/07/20 20:56 Dose: 1 dose Documented by: PINKY Polyethylene Glycol (Miralax) 17 gm PO DAILYP PRN PRN Reason: Constipation Last Admin: 08/09/20 18:49 Dose: 17 gm Documented by: PINKY Promethazine HCl (Phenergan) 12.5 mg PO Q8HP PRN PRN Reason: Nausea And Vomiting Last Admin: 08/10/20 08:02 Dose: 12.5 mg Documented by: Admin: 08/08/20 17:12 Dose: 12.5 mg Documented by: Admin: 08/08/20 07:46 Dose: 12.5 mg Documented by: Admin: 08/07/20 21:30 Dose: 12.5 mg Documented by: Admin: 08/07/20 13:22 Dose: 12.5 mg Documented by: JILL Pyridoxine HCl (Vitamin B-6) 100 mg PO DAILY@1800 [facility] Last Admin: 08/09/20 16:54 Dose: 100 mg Documented by: Admin: 08/08/20 17:13 Dose: 100 mg Documented by: Admin: 08/07/20 17:30 Dose: 100 mg Documented by: JILL Senna (Senokot) 2 tab PO HS [facility] Last Admin: 08/09/20 20:19 Dose: 2 tab Documented by: Admin: 08/08/20 20:06 Dose: 2 tab Documented by: Admin: 08/07/20 20:53 Dose: 2 tab Documented by: PINKY Sertraline HCl (Zoloft) 100 mg PO QDAY [facility] Last Admin: 08/10/20 09:21 Dose: 100 mg Documented by: Cosigned by: Admin: 08/09/20 09:22 Dose: 100 mg Documented by: Admin: 08/08/20 10:33 Dose: 100 mg Documented by: ALFONZO Simethicone (Mylicon) 80 mg CHEWED HS [facility] Last Admin: 08/09/20 20:18 Dose: 80 mg Documented by: Admin: 08/08/20 20:06 Dose: 80 mg Documented by: Admin: 08/07/20 20:52 Dose: 80 mg Documented by: PINKY Sodium Chloride (Saline Flush) 10 ml IV Q8 [facility] Last Admin: 08/10/20 04:27 Dose: 10 ml Documented by: Admin: 08/09/20 20:21 Dose: 10 ml Documented by: Admin: 08/09/20 14:20 Dose: 10 ml Documented by: Admin: 08/09/20 05:44 Dose: 10 ml Documented by: Admin: 08/08/20 20:04 Dose: 10 ml Documented by: Admin: 08/08/20 15:33 Dose: 10 ml Documented by: Admin: 08/08/20 04:48 Dose: 10 ml Documented by: Admin: 08/07/20 20:58 Dose: 10 ml Documented by: Admin: 08/07/20 15:40 Dose: 10 ml Documented by: JILL Shift Summary 08/10/20 05:05 Shift Summary by Leticia Howard&Sandi4, up with 1-2 assist/gait belt/FWW to the BSC. Patient right leg is weak & can give away at times. She is able to reposition herself in bed as well as swing legs over the bed edge - stands up with minimal help. Percocet 5/325mg 2 tabs x2 this shift. Ativan 0.5mg PO X2. Patient received miralax and then a suppository this morning with a large bowel movement and was guaic negative. No complaints of nausea this shift. Accu-checks 118 no coverage. Possible discharge to [facility]. Will update report at bedside. Initialized on 08/10/20 05:05 - END OF NOTE
--- NOTE | 2020-08-10 09:56 | Discharge Summary ---
Discharge Provider Provider Patient information: Note initiated : 08/10/20 at 9:53 am Service Date, if different from initiated Date: [] Patient: Yane Carranza 65 y/o F admitted on 08/07/20 for Right Total Knee Arthroplasty Jhony. Chief Complaint: [] Date of admission: 08/07/20 10:30 Discharge date: 08/10/20 Primary care physician: Shelby Benson Consults: 08/06/20 00:05 Consult to Physician [CONS] Routine Comment: Consulting Provider: Chelsey Monsalve Reason For Exam: Physician to Consult Discharge Meds Discharge Medications Home Medications atorvastatin 10 mg tablet 10 mg PO HS 03/01/18 [History Confirmed 08/05/20 Last Taken 08/04/20 20:00] ferrous gluconate 324 mg (37.5 mg iron) tablet 324 mg PO HS tab 03/01/18 [History Confirmed 08/05/20 Last Taken 08/04/20 08:00] lorazepam 1 mg tablet 1 mg PO DAILYP PRN 03/01/18 [History Confirmed 08/05/20 Last Taken 07/06/20] promethazine 12.5 mg tablet 12.5 mg PO Q8HP PRN tab 03/01/18 [History Confirmed 08/05/20 Last Taken 07/22/20] Digestive Health Probiotic 1 cap PO DAILY@1200 07/30/20 [History Confirmed 08/05/20 Last Taken 08/04/20 12:00] Flovent HFA 1 puff INHALATION QID 07/30/20 [History Confirmed 08/05/20 Last Taken 08/04/20 21:00] Robitussin Cough-Chest [place] DM 5 ml PO HSP PRN 07/30/20 [History Confirmed 08/05/20 Last Taken 08/03/20 21:00] acetaminophen 500 mg PO HSP PRN 07/30/20 [History Confirmed 08/05/20 Last Taken 08/04/20 02:00] albuterol sulfate [Ventolin HFA] 1 - 2 puff INHALATION Q6HP PRN 07/30/20 [History Confirmed 08/05/20 Last Taken 08/04/20 21:00] artificial tears(hypromellose) 1 drp OPHTHALMIC (EYE) BID 07/30/20 [History Confirmed 08/05/20 Last Taken 08/04/20 21:00] ascorbic acid (vitamin C) [Vitamin C] 500 mg PO DAILY@1800 07/30/20 [History Confirmed 08/05/20 Last Taken 08/04/20 18:00] fluticasone propionate [Flonase Allergy Relief] 1 spray INTRANASAL DAILYP PRN 07/30/20 [History Confirmed 08/05/20 Last Taken 08/02/20 08:00] gabapentin 600 mg PO TID 07/30/20 [History Confirmed 08/05/20 Last Taken 08/05/20 06:00] sayda root-pyridoxine HCl(B6) 1 cap PO DAILY@1800 07/30/20 [History Confirmed 08/05/20 Last Taken 08/04/20 18:00] hydroxyzine HCl 25 mg PO TID 07/30/20 [History Confirmed 08/05/20 Last Taken 08/05/20 04:00] ipratropium-albuterol 3 ml INHALATION QID PRN 07/30/20 [History Confirmed 08/05/20 Last Taken 08/04/20 19:00] levothyroxine 75 mcg PO ACB 07/30/20 [History Confirmed 08/05/20 Last Taken 08/04/20 08:00] lisinopril 10 mg PO HS 07/30/20 [History Confirmed 08/05/20 Last Taken 08/04/20 08:00] magnesium 250 mg PO DAILY@1800 07/30/20 [History Confirmed 08/05/20 Last Taken 08/04/20 18:00] melatonin 5 mg PO HS 07/30/20 [History Confirmed 08/05/20 Last Taken 08/04/20 20:00] memantine 10 mg PO DAILY 07/30/20 [History Confirmed 08/05/20 Last Taken 08/04/20 08:00] montelukast 10 mg PO HS 07/30/20 [History Confirmed 08/05/20 Last Taken 08/04/20 08:00] omeprazole 20 mg PO ACB 07/30/20 [History Confirmed 08/05/20 Last Taken 08/05/20 04:00] selenium 200 mcg PO DAILY@1200 07/30/20 [History Confirmed 08/05/20 Last Taken 08/04/20 12:00] sennosides [senna] 8.6 mg PO HS 07/30/20 [History Confirmed 08/05/20 Last Taken 08/04/20 21:00] sertraline 100 mg PO QDAY 07/30/20 [History Confirmed 08/05/20 Last Taken 1 10/05/19 04:00] simethicone 125 mg PO HS 07/30/20 [History Confirmed 08/05/20 Last Taken 08/03/20 20:00] spironolactone 25 mg PO QDAY 07/30/20 [History Confirmed 08/05/20 Last Taken 08/04/20 08:00] zinc-vit C-pyridoxine (vit B6) 1 jak PO DAILY@1200 07/30/20 [History Confirmed 08/05/20 Last Taken 08/04/20 12:00] zolpidem 5 mg PO HSP PRN 07/30/20 [History Confirmed 08/05/20 Last Taken 08/04/20 20:00] levetiracetam 500 mg PO BID #40 tab 08/09/20 [Rx Last Taken Unknown] aspirin 81 mg PO BID #14 tab 08/10/20 [Rx Last Taken Unknown] oxycodone-acetaminophen 1 tab PO Q6H PRN #30 tab 08/10/20 [Rx Last Taken Unknown] COURSE Hospital Course Hospital course: Patient is a 64-year-old female with a history of seizure disorder, SLE, GI bleeding, conversion disorder type 2 diabetes, and high blood pressure who underwent right knee replacement yesterday afternoon by Dr. Meade. Last night around midnight she had one episode of seizure, presenting with both arms myoclonic shaking and holding a pillow to her chest. I was called for this event. I saw and examined patient immediately in patient room. As per nurse, during the event, pt did not lose consciousness, no urinary or bowel incontinence. But patient did complains of mild headache. Otherwise patient denied dizziness, nausea, vomiting, abdominal pain, or dysuria. No change in vision. cc:: CC: Edward Meade 08/07 Pt no longer has episode of seizure. She was sleepy yesterday and today she is more alert and awake. MRI of brain showed pseudotumor cerebri. This is occasionally associated with seizures. Consider: Fluoroscopic guided lumbar puncture for CSF pressure measurements and concomitant CSF removal which may improve symptoms Discussed with the result and her seizure with neurology Lisa Lund who agreed with current keppra treatment. We can do LP in the hospital or can be done as an outpatient. Could not reach her son. Considering there is no more seizure and sleepy/lethargic at times, pt also complains of leg pain, not controlled today, I will decrease keppra to 250mg bid and start her on morphine 2mg iv Q4hrs prn. I feel her sleepiness could result from keppra. Spoke to orth Vanna Horn who cleared to discharge the pt. Asprin 81mg bid x 2wks for DVT prophylaxis and f/u with orth in 2 wks. 08/08 Patient does not have any complaints. No longer has seizure. She is more alert and can answer questions. Both arm weakness symmetrical but right leg weaker than left leg. Donot know the weakness is acute or chronic. CT of head without contrast negative. NO MRI available at weekend at our hospital. Pt fully understood this. Repeat MRI on Monday. Hb dropped to 7.4, platelets 86, creatinine 1.0, hemoglobin A1c 5.3. Considering her condition, I would like to give her a 1 unit blood transfusion. Guaiac test was ordered. 08/09 No new complaints. No seizure. Hb went up to 8.6 and plt went to 100. No overnight acute events Awaiting for placement-SNF 08/10 Doing well. Feeling better. No new pains or complaints. No seizure. A: *Seizure: *Recent MRI findings compatible iwth Pseudotumor cerebri -One episode of seizure -Discussed with Lisa Lund who agreed with current keppra treatment. She will do LP in office. -Dr. Bobby will see her next week. *S/p right total knee arthroplasty by Dr. Meade on 08/05 *Hx of SLE *Hx of GI bleeding: omeprazole *Hx of conversion disorder *DM type 2: 7. HTN *ASHLEY on CKD stage III *Thrombocytopenia, chronic: stable *Anemia, chronic: *Depression: Discharge diagnosis: Seizure total knee arthroplasty Secondary discharge diagnosis: History of lupus conversion disorder diabetes chronic kidney disease thrombocytopenia and chronic anemia depression suspected pseudotumor cerebri Time Spent with Patient Time attestation: Total time spent providing and/or coordinating discharge services: Time spent: Greater than 30 minutes EXAM Constitutional Vitals: Temp Pulse Resp BP Pulse Ox 98.9 F 89 16 114/59 94 08/10/20 06:32 08/10/20 03:20 08/10/20 06:32 08/10/20 06:32 08/10/20 06:32 Discharge Plan Patient/Caregiver Discharge Instructions Activity: as per physical therapy and increase activity as tolerated Diet: Regular Diet Instructions: Knee Arthroscopy (GEN) Activity Restrictions/Additional Instructions: Discharge Instructions: Do the exercises at home that physical therapy gave you. Weight bearing as tolerated. Wear comfortable clothing for physical therapy. You will have [facility] for physical therapy [phone]. You have the silver dressing, leave in place for 7-14 days then remove. You have the ZipLine closure, this needs to stay in place until seen in the physician's office. You may shower with dressing on, pat dry after shower. You may start showering on post op day #2. To avoid constipation while taking any narcotic pain medication, take an over the counter stool softener/laxative. Use ice packs as directed. Ice and elevation will help with pain and swelling. If you have any questions or concerns call your orthopedic surgeon before going to the emergency room. [facility] has a strategic consultant physician 24 hours per day/7 days per week and can be reached at [phone]. Call for fevers above 100.5 or pain not controlled by medication. Your prescriptions are with your discharge information. Some medications were electronically transmitted to your pharmacy of choice. Take Aspirin as prescribed to prevent blood clots (see medication list). This discharge packet is provided to you to help keep you informed about your care. We want to ensure you get everything you need when you go home. You will also be receiving a call from us in a few days to follow up with you and see how you are doing since your discharge. This gives us a chance to listen to any concerns you maybe experiencing since you were discharged or any additional needs you may have, as well as providing us feedback on your care experience. We strive to always provide excellent care and thank you for your feedback and for choosing [facility]. Prescriptions: New levetiracetam 500 mg Tablet 500 mg PO BID Qty: 40 RF: 0 oxycodone-acetaminophen 5-325 mg Tablet 1 tab PO Q6H PRN (Reason: Per Pain Protocol) Qty: 30 RF: 0 aspirin 81 mg Tablet,Chewable 81 mg PO BID Qty: 14 RF: 0 Continued atorvastatin 10 mg tablet 10 mg PO HS RF: 0 lorazepam 1 mg tablet 1 mg PO DAILYP PRN (Reason: Anxiety) RF: 0 ferrous gluconate 324 mg (37.5 mg iron) tablet 324 mg PO HS RF: 0 promethazine 12.5 mg tablet 12.5 mg PO Q8HP PRN (Reason: Nausea And Vomiting) RF: 0 ipratropium-albuterol 0.5 mg-3 mg(2.5 mg base)/3 mL Solution For Nebulization 3 ml INHALATION QID PRN (Reason: Shortness Of Breath) RF: 0 sertraline 100 mg Tablet 100 mg PO QDAY RF: 0 spironolactone 25 mg Tablet 25 mg PO QDAY RF: 0 levothyroxine 75 mcg Tablet 75 mcg PO ACB RF: 0 lisinopril 10 mg Tablet 10 mg PO HS RF: 0 Flovent HFA 44 mcg/actuation Hfa Aerosol Inhaler 1 puff INHALATION QID RF: 0 gabapentin 300 mg Capsule 600 mg PO TID RF: 0 omeprazole 20 mg Capsule,Delayed Release(Dr/Ec) 20 mg PO ACB RF: 0 montelukast 10 mg Tablet 10 mg PO HS RF: 0 hydroxyzine HCl 25 mg Tablet 25 mg PO TID RF: 0 zolpidem 5 mg Tablet 5 mg PO HSP PRN (Reason: Insomnia) RF: 0 albuterol sulfate [Ventolin HFA] 90 mcg/actuation Hfa Aerosol Inhaler 1 - 2 puff INHALATION Q6HP PRN (Reason: Shortness Of Breath) RF: 0 fluticasone propionate [Flonase Allergy Relief] 50 mcg/actuation [place],Suspension 1 spray INTRANASAL DAILYP PRN (Reason: Allergy Symptoms) RF: 0 memantine 10 mg Tablet 10 mg PO DAILY RF: 0 acetaminophen 500 mg Tablet 500 mg PO HSP PRN (Reason: Pain) RF: 0 Robitussin Cough-Chest Juancho DM 5-100 mg/5 mL Liquid 5 ml PO HSP PRN (Reason: Cough) RF: 0 sennosides [senna] 8.6 mg Tablet 8.6 mg PO HS RF: 0 simethicone 125 mg Capsule 125 mg PO HS RF: 0 selenium 200 mcg Tablet 200 mcg PO DAILY@1200 RF: 0 ascorbic acid (vitamin C) [Vitamin C] 500 mg Tablet 500 mg PO DAILY@1800 RF: 0 magnesium 250 mg Tablet 250 mg PO DAILY@1800 RF: 0 artificial tears(hypromellose) 0.5 % Drops 1 drp ophthalmic (eye) BID RF: 0 melatonin 5 mg Tablet 5 mg PO HS RF: 0 zinc-vit C-pyridoxine (vit B6) 12-60-0.5 mg Lozenge 1 jak PO DAILY@1200 RF: 0 Digestive Health Probiotic 10 billion cell Capsule 1 cap PO DAILY@1200 RF: 0 sayda root-pyridoxine HCl(B6) 325-25 mg Capsule 1 cap PO DAILY@1800 RF: 0 Discontinued bupropion HCl [Wellbutrin XL] 150 mg Tablet Extended Release 24 Hr 150 mg PO QAM RF: 0 Follow Up Plan Follow up with: Edward Meade MD [Physician] - 08/24/20 10:00 am Lisa Bobby MD [Physician] - Shelby Benson MD [Primary Care Provider] - 08/14/20 11:40 am (Please arrive 15 minutes early.) Patient Disposition: Xfer SNF Prognosis: Fair Rehab Potential: Fair I certify that the patient requires SNF services: Yes Overall status at discharge: patient is progressing back to baseline Discharge Orders: Discharge Order (Routine); Ordered 08/10/20 Ordered By: Edward Meade
[2020-08-10] MEDS: IPRATROPIUM/ALBUTEROL 3 ML AMPUL.NEB NEB PRN (10:49)
[2020-08-10] MEDS: LACTOBACILLUS 1 CAPSULE PO SCH (12:05)
[2020-08-10] MEDS ORDERED: FLU VACC QS2020-21(6MOS UP)/PF 60 MCG/0.5 ML SYRINGE IM ONE (13:15)
[2020-08-10] MEDS ORDERED: PNEUMOCOCCAL 23-VAL P-SAC VAC 0.5 ML SYRINGE IM ONE (13:15)
== END 2020-08-10 13:16 | DRG 470 ==
LOC: MEDSUROUT 05:01 → ICU 05:01 → MEDSUR 05:04 → ICU 08-06 00:35 → OBSVTOIN 08-06 00:36 → INTOOBSV 08-06 00:36 → MEDSUR 08-07 11:48
PROVIDERS: ADMIT Internal Medicine; ATTEND Orthopaedic Surgery